=== PATIENT | female | born 1975 | race Caucasian/White ===

== ENCOUNTER 2016-05-12 17:45 | Emergency (ER) | payer SELFPAY ==
[~2016-05-12] VITALS: Ht 157.5 cm; Wt 50.0 kg
[2016-05-12 17:47] VITALS: BP 137/64; PULSE 73; RESP 14; TEMP 98.4; O2SAT 99
[2016-05-12 20:13] LABS: BACTERIA, URINE RARE /hpf; BLOOD, URINE NEG (NEG); GLUCOSE,URINE NEG (NEG); KETONE, URINE NEG (NEG); MUCUS URINE FEW /lpf (OCC); NITRITE,URINE NEG (NEG); SQUAMOUS EPITHELIAL CELL URINE 26 /hpf (0-5); URINE COLOR YELLOW (YELLW/STRAW)
[2016-05-12 20:14] LABS: COMMENT (UR) CULT NOT INDICATED; CULTURE IF INDICATED CULT NOT INDICATED
[2016-05-12 23:00] VITALS: BP 112/69; PULSE 71; RESP 16; O2SAT 99
[2016-05-12] MEDS ORDERED: KETOROLAC TROMETHAMINE 30 MG/ML (IVP) VIAL IV PUSH ONE (23:30)
[2016-05-12 23:56] LABS: AUTOMATED NEUTROPHIL # 5.3 TH/MM3 (1.8-7.7); BASOPHIL # 0.2 TH/MM3 (0-0.2); BASOPHIL % 1.6 % (0.0-2.0); EOSINOPHIL # 0.2 TH/MM3 (0-0.4); HEMATOCRIT 40.9 % (35.0-46.0); HEMO FLAGS DIFF FINAL; LYMPHOCYTE # 3.5 TH/MM3 (1.0-4.8); MEAN CELL VOLUME 92.2 FL (80.0-100.0); MEAN CORPUSCULAR HEMOGLOBIN 30.9 PG (27.0-34.0); MEAN CORPUSCULAR HGB CONC 33.5 % (32.0-36.0); MONO % 5.6 % (0.0-8.0); NEUT % 54.8 % (16.0-70.0); PLATELET COUNT 244 TH/MM3 (150-450); RED BLOOD COUNT 4.43 MIL/MM3 (4.00-5.30); RED CELL DISTRIBUTION WIDTH 13.4 % (11.6-17.2); WHITE BLOOD COUNT 9.6 TH/MM3 (4.0-11.0)
[2016-05-13] VITALS: BP 112/56; PULSE 71; RESP 14; O2SAT 99
[2016-05-13 00:14] LABS: ANION GAP 7 MEQ/L (5-15); AST (GOT) 34 U/L (15-37); BICARBONATE 26.3 MEQ/L (21.0-32.0); BLOOD UREA NITROGEN 13 MG/DL (7-18); CHLORIDE 104 MEQ/L (98-107); GLOMERULAR FILTRATION RATE 91 ML/MIN (>89); POTASSIUM 3.6 MEQ/L (3.5-5.1); SODIUM (NA) 137 MEQ/L (136-145)
[2016-05-13 00:18] LABS: ALKALINE PHOSPHATASE 69 U/L (45-117); ALT (GPT) 55 U/L (10-53); TOTAL BILIRUBIN ADULT 0.2 MG/DL (0.2-1.0)
[2016-05-13] MEDS ORDERED: MORPHINE SULFATE 4 MG/ML INJ IV PUSH ONE (00:30)
--- NOTE | 2016-05-13 00:32 | PD ---
HPI Chief Complaint: Abdominal Pain Time Seen by Provider: 23:25 Travel History International Travel<30 days: No Contact w/Intl Traveler<30days: No Traveled to known affect area: No History of Present Illness HPI 40yo F with PMH of endometriosis, hep C, cocaine abuse, bipolar and schizophrenia here because her abdominal pain has persisted. Pt was admitted -05/10/16 for sepsis, UTI, trichonmonas, enteritis and sign out AMA. Pt was seen by GI and recommended endoscopic/colonoscopic after CTa/p showed generalized mild enteritis. Pt was given cipro/flagyl and morphine while admitted. +Nausea. States she has had had BM since she was here. States she will stay this time to get the study done. States she does not have insurance and cant have it done as outpatient. Denies any fever, cough, chest pain, sob, vomiting, weakness, numbness. PFSH Past Medical History Arthritis: Yes Autoimmune Disease: No Anxiety: Yes Depression: Yes Cancer: Yes (Dysplasia) Cardiovascular Problems: No Chemotherapy: No COPD: No (says told her she has it ) Cerebrovascular Accident: No Diabetes: No Diminished Hearing: No Endocrine: No Genitourinary: No Hepatitis: Yes (Hep C ) Immune Disorder: No Musculoskeletal: Yes Neurologic: No Psychiatric: Yes (BIPOLAR, SCHIZO) Reproductive: Yes (endometriosis) Respiratory: No Immunizations Current: Yes Migraines: No Radiation Therapy: No Seizures: No Influenza Vaccination: No PNEUMOCCOCAL Vaccine (Year): 2 ?: Not : 4 Para: 1 Miscarriage: 2 : 1 Ectopic : No Ovarian Cysts: No Tubal Ligation: Yes (LEFT ONLY) Past Surgical History Appendectomy: Yes Gynecologic Surgery: Yes (laproscopy) Hysterectomy: No Other Surgery: Yes (Left fallopian tube removed age 21) Social History Alcohol Use: No Tobacco Use: Yes (1 PPD) Substance Use: Yes (CRACK, LAST USE 05/11/16) Allergies-Medications (Allergen,Severity, Reaction): Coded Allergies: Penicillin (Verified Allergy, Severe, GI UPSET, 05/12/16) Sulfa (Verified Allergy, Intermediate, GI , 05/12/16) Betadine (Verified Allergy, Mild, RASH, 05/12/16) Barium Sulfate (Verified Allergy, Unknown, PT GETS A RASH WITH BETADINE, ) Reported Meds & Prescriptions Reported Meds & Active Scripts Active Cipro (Ciprofloxacin HCl) 500 Mg Tab 500 Mg PO BID 7 Days Acetaminophen Extra Strength (Acetaminophen) 500 Mg Cap 500 Mg PO Q6H PRN Review of Systems Except as stated in HPI: all other systems reviewed are Neg Physical Exam Narrative GENERAL: 40yo F in mild distress. SKIN: Warm and dry. HEAD: Atraumatic. Normocephalic. CARDIOVASCULAR: Regular rate and rhythm. No murmur appreciated. RESPIRATORY: No accessory muscle use. Clear to auscultation. Breath sounds equal bilaterally. GASTROINTESTINAL: Abdomen soft, +TTP diffusely. No rebound tenderness or guarding. MUSCULOSKELETAL: No obvious deformities. No clubbing. No cyanosis. No edema. NEUROLOGICAL: Awake and alert. No obvious cranial nerve deficits. Motor grossly within normal limits. Normal speech. PSYCHIATRIC: Appropriate mood and affect; insight and judgment normal. Data Data Last Documented VS Vital Signs Date Time Temp Pulse Resp B/P Pulse Ox O2 Delivery O2 Flow Rate FiO2 05/13/16 03:48 80 16 100/52 100 05/13/16 02:00 Room Air 05/12/16 17:47 98.4 Orders Urinalysis - C+S If Indicated (05/12/16 19:51) Lactic Acid (05/12/16 22:42) Complete Blood Count With Diff (05/12/16 23:30) Comprehensive Metabolic Panel (05/12/16 23:30) Lipase (05/12/16 23:30) Ketorolac Inj (Toradol Inj) (05/12/16 23:30) Morphine Inj (Morphine Inj) (05/13/16 00:30) Bhcg Screen Qualitative (05/13/16 00:32) Mandatory Outpatient Referral (05/13/16 01:43) Abdomen, Flat & Upright (05/13/16 ) Labs Laboratory Tests Test 05/12/16 05/12/16 05/12/16 19:50 22:45 23:45 Urine Color YELLOW Urine Turbidity HAZY Urine pH 6.0 Urine Specific [place] 1.019 Urine Protein NEG mg/dL Urine Glucose (UA) NEG mg/dL Urine Ketones NEG mg/dL Urine Occult Blood NEG Urine Nitrite NEG Urine Bilirubin NEG Urine Urobilinogen LESS THAN 2.0 MG/DL Urine Leukocyte Esterase TRACE Urine RBC 2 /hpf Urine WBC 2 /hpf Urine Squamous Epithelial 26 /hpf Cells Urine Bacteria RARE /hpf Urine Mucus FEW /lpf Microscopic Urinalysis Comment CULT NOT INDICATED Lactic Acid Level 0.4 mmol/L White Blood Count 9.6 TH/MM3 Red Blood Count 4.43 MIL/MM3 Hemoglobin 13.7 GM/DL Hematocrit 40.9 % Mean Corpuscular Volume 92.2 FL Mean Corpuscular Hemoglobin 30.9 PG Mean Corpuscular Hemoglobin 33.5 % Concent Red Cell Distribution Width 13.4 % Platelet Count 244 TH/MM3 Mean Platelet Volume 10.8 FL Neutrophils (%) (Auto) 54.8 % Lymphocytes (%) (Auto) 36.0 % Monocytes (%) (Auto) 5.6 % Eosinophils (%) (Auto) 2.0 % Basophils (%) (Auto) 1.6 % Neutrophils # (Auto) 5.3 TH/MM3 Lymphocytes # (Auto) 3.5 TH/MM3 Monocytes # (Auto) 0.5 TH/MM3 Eosinophils # (Auto) 0.2 TH/MM3 Basophils # (Auto) 0.2 TH/MM3 CBC Comment DIFF FINAL Differential Comment Sodium Level 137 MEQ/L Potassium Level 3.6 MEQ/L Chloride Level 104 MEQ/L Carbon Dioxide Level 26.3 MEQ/L Anion Gap 7 MEQ/L Blood Urea Nitrogen 13 MG/DL Creatinine 0.72 MG/DL Estimat Glomerular Filtration 91 ML/MIN Rate Random Glucose 124 MG/DL Calcium Level 8.3 MG/DL Total Bilirubin 0.2 MG/DL Aspartate Amino Transf 34 U/L (AST/SGOT) Alanine Aminotransferase 55 U/L (ALT/SGPT) Alkaline Phosphatase 69 U/L Total Protein 7.2 GM/DL Albumin 3.0 GM/DL Lipase 94 U/L Beta HCG, Qualitative LESS THAN 1 MIU/ML [facility] Medical Decision Making Medical Screen Exam Complete: Yes Emergency Medical Condition: Yes Differential Diagnosis Enteritis vs. ulcerative colitis vs. obstruction Narrative Course 40yo F with persistent abdominal pain since last week. Pt signed out AMA before endoscopy and colonoscopy could be done. Labs reviewed, no leukocytosis. Lactic acid 0.4. ALT 55. UA showed trace leukocyte. Culture not indicated. Discussed with Dr. Wick who does not think the patient should be admitted and recommended a outpatient GI referral. Pt still with pain after toradol so morphine was given. bHCG negative. Signed out to Dr. Haney to follow up xray abdomen. Do not think pt has obstruction but states she has not had a bowel movement in few days, likely has constipation. Pt will be discharged with mandatory referral to GI if xray negative. Pt is well appearing with normal VS and labs. Informed pt of plan. Diagnosis Primary Impression: Chronic constipation Patient Instructions: General Instructions Departure Forms: Tests/Procedures Additional Instructions: Please follow up with GI as outpatient for further work up. Wait for correctional casework specialist to call you for appointment date and time. Return to the ED if symptoms worsen. Med/Other Pt SpecificInfo: Prescription(s) given Scripts Ciprofloxacin (Cipro)500 Mg [id number] Mg PO BID 7 Days Ref 0 Prov:Anali Haney MD 05/13/16 Acetaminophen (Acetaminophen Extra Strength)500 Mg Cop855 Mg PO Q6H PRN #20 CAP Ref 0 Prov:Cyndi Curtis DO 05/13/16 Cyndi Curtis DO May 13, 2016 00:32
[2016-05-13 01:00] VITALS: BP 104/55; PULSE 71; RESP 16; O2SAT 99
[2016-05-13] MEDS ORDERED: EXTR500C PO (01:30)
[2016-05-13 02:00] VITALS: BP 96/55; PULSE 61; RESP 16; O2SAT 99
--- NOTE | 2016-05-13 02:53 | RADRPT ---
EXAM DATE/TIME: 05/13/2016 02:21 [place] COMPARISON: CT ABDOMEN & PELVIS W CONTRAST, May 08, 2016, 19:48. INDICATIONS : Abdominal pain and constipation for one week. MEDICAL HISTORY : None. SURGICAL HISTORY : None. ENCOUNTER: Initial ACUITY: 1 week PAIN SCORE: 8/10 LOCATION: Bilateral abdomen. FINDINGS: Supine and upright views of the abdomen were performed. The abdominal bowel gas pattern is normal. No air fluid levels are seen. No abnormal masses, or calcifications is seen. Hepatomegaly noted. Th e visualized lower lungs are clear. No evidence of free intraperitoneal gas. The osseous structures are unremarkable. CONCLUSION: 1. Normal bowel gas pattern. 2. Hepatomegaly Miquel Carpenter Jr., MD on May 13, 2016 at 2:50 Board Certified Radiologist. This report was verified electronically.
[2016-05-13] MEDS ORDERED: CIPR-9 PO (02:57)
--- NOTE | 2016-05-13 02:57 | PD ---
Physical Exam Date Seen by Provider: May 13, 2016 Time Seen by Provider: 02:54 Narrative Accepted in transfer of care from Dr. Curtis Data Data Last Documented VS Vital Signs Date Time Temp Pulse Resp B/P Pulse Ox O2 Delivery O2 Flow Rate FiO2 05/13/16 03:48 80 16 100/52 100 05/13/16 02:00 Room Air 05/12/16 17:47 98.4 Orders Urinalysis - C+S If Indicated (05/12/16 19:51) Lactic Acid (05/12/16 22:42) Complete Blood Count With Diff (05/12/16 23:30) Comprehensive Metabolic Panel (05/12/16 23:30) Lipase (05/12/16 23:30) Ketorolac Inj (Toradol Inj) (05/12/16 23:30) Morphine Inj (Morphine Inj) (05/13/16 00:30) Bhcg Screen Qualitative (05/13/16 00:32) Mandatory Outpatient Referral (05/13/16 01:43) Abdomen, Flat & Upright (05/13/16 ) Labs Laboratory Tests Test 05/12/16 05/12/16 05/12/16 19:50 22:45 23:45 Urine Color YELLOW Urine Turbidity HAZY Urine pH 6.0 Urine Specific [place] 1.019 Urine Protein NEG mg/dL Urine Glucose (UA) NEG mg/dL Urine Ketones NEG mg/dL Urine Occult Blood NEG Urine Nitrite NEG Urine Bilirubin NEG Urine Urobilinogen LESS THAN 2.0 MG/DL Urine Leukocyte Esterase TRACE Urine RBC 2 /hpf Urine WBC 2 /hpf Urine Squamous Epithelial 26 /hpf Cells Urine Bacteria RARE /hpf Urine Mucus FEW /lpf Microscopic Urinalysis Comment CULT NOT INDICATED Lactic Acid Level 0.4 mmol/L White Blood Count 9.6 TH/MM3 Red Blood Count 4.43 MIL/MM3 Hemoglobin 13.7 GM/DL Hematocrit 40.9 % Mean Corpuscular Volume 92.2 FL Mean Corpuscular Hemoglobin 30.9 PG Mean Corpuscular Hemoglobin 33.5 % Concent Red Cell Distribution Width 13.4 % Platelet Count 244 TH/MM3 Mean Platelet Volume 10.8 FL Neutrophils (%) (Auto) 54.8 % Lymphocytes (%) (Auto) 36.0 % Monocytes (%) (Auto) 5.6 % Eosinophils (%) (Auto) 2.0 % Basophils (%) (Auto) 1.6 % Neutrophils # (Auto) 5.3 TH/MM3 Lymphocytes # (Auto) 3.5 TH/MM3 Monocytes # (Auto) 0.5 TH/MM3 Eosinophils # (Auto) 0.2 TH/MM3 Basophils # (Auto) 0.2 TH/MM3 CBC Comment DIFF FINAL Differential Comment Sodium Level 137 MEQ/L Potassium Level 3.6 MEQ/L Chloride Level 104 MEQ/L Carbon Dioxide Level 26.3 MEQ/L Anion Gap 7 MEQ/L Blood Urea Nitrogen 13 MG/DL Creatinine 0.72 MG/DL Estimat Glomerular Filtration 91 ML/MIN Rate Random Glucose 124 MG/DL Calcium Level 8.3 MG/DL Total Bilirubin 0.2 MG/DL Aspartate Amino Transf 34 U/L (AST/SGOT) Alanine Aminotransferase 55 U/L (ALT/SGPT) Alkaline Phosphatase 69 U/L Total Protein 7.2 GM/DL Albumin 3.0 GM/DL Lipase 94 U/L Beta HCG, Qualitative LESS THAN 1 MIU/ML MDM Medical Record Reviewed: Yes Supervised Visit with GLORY: No Differential Diagnosis Please refer to Dr. Curtis's dictation Narrative Course Accepted in transfer of care from Dr. Curtis for follow-up of pending abdominal x- ray and quantitative hCG Quantitative hCG is less than one, negative Abdominal flat and upright imaging shows nonspecific bowel gas pattern large stool no obstructive pattern no free air Patient was noted by urinalysis to have rare bacteria leukocyte Estrace patient was recently hospitalized 05/08/16 for sepsis and was identified to have Escherichia coli UTI that is sensitive to Cipro patient was not discharged that she left AMA with oral antibiotic therefore be given 7 day course to complete coverage of Escherichia coli UTI Diagnosis Primary Impression: Chronic constipation Additional Impression: UTI (urinary tract infection) Referrals: [employer] Supervisor call for appointment Patient Instructions: General Instructions Departure Forms: Tests/Procedures Additional Instruction: Please follow up with GI as outpatient for further work up. Wait for case finisher to call you for appointment date and time. Return to the ED if symptoms worsen. Med/Other Pt SpecificInfo: Prescription(s) given Scripts Ciprofloxacin (Cipro)500 Mg Wzc403 Mg PO BID 7 Days Ref 0 Prov:Anali Haney MD 05/13/16 Acetaminophen (Acetaminophen Extra Strength)500 Mg [id number] Mg PO Q6H PRN #20 CAP Ref 0 Prov:Cyndi Curtis DO 05/13/16 Disposition: 01 DISCHARGE HOME Condition: Stable Anali Haney MD May 13, 2016 02:57
[2016-05-13 03:48] VITALS: BP 100/52
== END 2016-05-13 03:52 | disposition home or self-care (01) ==
LOC: NEPA 17:45
DX: K59.00 Constipation, unspecified (principal); F17.210 Nicotine dependence, cigarettes, uncomplicated; F15.90 Other stimulant use, unspecified, uncomplicated; N39.0 Urinary tract infection, site not specified
CPT/HCPCS: 74020; 80053; 81001; 83605; 83690; 84703; 85025; 96374; 96375; 99284; J1885; J2270

== ENCOUNTER 2016-05-30 06:32 | Inpatient (IN) | payer SELFPAY ==
[2016-05-30] VITALS (9 sets, daily range): BP systolic 105–148; BP diastolic 48–65; PULSE 54–96; RESP 16–20; TEMP 96.1–98.2; O2SAT 95–100
[~2016-05-30] VITALS: Ht 158.8 cm; Wt 65.0 kg
[~2016-05-30 06:32] MED LIST: CIPR-9 PO; EXTR500C PO
[2016-05-30] MEDS ORDERED: LIDOCAINE 1%/EPINEPHrine 1:100,000 SOLN 20 ML VIAL INFIL ONE (07:30)
[2016-05-30] MEDS ORDERED: MORPHINE SULFATE 4 MG/ML INJ IV PUSH ONE ×2 (07:30→10:00)
--- NOTE | 2016-05-30 07:30 | PD ---
HPI Chief Complaint: Skin Problem Time Seen by Provider: 07:05 Travel History International Travel<30 days: No Contact w/Intl Traveler<30days: No Traveled to known affect area: No History of Present Illness HPI 40-year-old female with history of IV drug abuse here with complaint of right arm swelling. Patient states she recently began using IV drugs, methamphetamine , injecting in both upper extremities. For the last 4 days she has noticed increasing pain in the right upper extremity surrounding an injection site and now pain when she ranges her fingers. The pain ranges from the hand all the way up to the elbow. She denies any fevers or chills. She does have a history of hepatitis C and endocarditis. PFSH Past Medical History Arthritis: Yes Autoimmune Disease: No Anxiety: Yes Depression: Yes Cancer: Yes (Dysplasia) Cardiovascular Problems: No Chemotherapy: No Cerebrovascular Accident: No Diabetes: No Diminished Hearing: No Endocrine: No Genitourinary: No Hepatitis: Yes (Hep C ) Immune Disorder: No Musculoskeletal: Yes Neurologic: No Psychiatric: Yes (BIPOLAR, SCHIZO) Reproductive: Yes (endometriosis) Respiratory: No Immunizations Current: Yes Migraines: No Radiation Therapy: No Seizures: No PNEUMOCCOCAL Vaccine (Year): 2 ?: Not LMP: 05/21/2016 : 4 Para: 1 Miscarriage: 2 : 1 Ectopic : No Ovarian Cysts: No Tubal Ligation: Yes (LEFT ONLY) Past Surgical History Appendectomy: Yes Gynecologic Surgery: Yes (laproscopy) Hysterectomy: No Other Surgery: Yes (Left fallopian tube removed age 21) Social History Alcohol Use: No Tobacco Use: Yes (1 PPD) Substance Use: Yes (inject cocaine) Allergies-Medications (Allergen,Severity, Reaction): Coded Allergies: Penicillin (Verified Allergy, Severe, GI UPSET, 05/12/16) Sulfa (Verified Allergy, Intermediate, GI , 05/12/16) Betadine (Verified Allergy, Mild, RASH, 05/12/16) Barium Sulfate (Verified Allergy, Unknown, PT GETS A RASH WITH BETADINE, ) Reported Meds & Prescriptions Reported Meds & Active Scripts Active No Active Prescriptions or Reported Medications Review of Systems Except as stated in HPI: all other systems reviewed are Neg Physical Exam Narrative GENERAL: Cachectic female in no acute distress SKIN: Warm and dry. Tract cano to the bilateral antecubital, dorsal hands. HEAD: Normocephalic. EYES: No scleral icterus. No injection or drainage. ENT: Mucous membranes pink and moist. NECK: Supple CARDIOVASCULAR: Regular rate and rhythm. No murmur appreciated. RESPIRATORY: No accessory muscle use. Clear to auscultation. Breath sounds equal bilaterally. GASTROINTESTINAL: Abdomen soft, non-tender, nondistended. MUSCULOSKELETAL: Right upper extremity with erythema on the volar aspect of the forearm surrounding an injection site. There is induration, slight fluctuance. Patient holds her third, fourth, fifth fingers of the right hand flexed and has moderate to severe pain with passive extension of these fingers. The index finger and thumb are spared. Good distal sensation, pulses. 4+ out of 5 cryptologic technician operator/analyst strength in the right upper extremity. NEUROLOGICAL: Awake and alert. Normal speech. PSYCHIATRIC: insight and judgment poor Data Data Last Documented VS Vital Signs Date Time Temp Pulse Resp B/P Pulse Ox O2 Delivery O2 Flow Rate FiO2 05/30/16 07:30 96 Room Air 05/30/16 07:10 71 05/30/16 06:34 98.2 20 143/63 Orders Electrocardiogram (05/30/16 07:18) Complete Blood Count With Diff (05/30/16 07:18) Lactic Acid Sepsis Protocol (05/30/16 07:18) Blood Culture (05/30/16 07:18) Ecg Monitoring (05/30/16 07:18) Iv Access Insert/Monitor (05/30/16 07:18) Oximetry (05/30/16 07:18) Basic Metabolic Panel (Bmp) (05/30/16 07:18) Wound Culture And Gram Stain (05/30/16 07:18) Lidocai-Epi 1%-1:100,000 Inj (Xylocaine- (05/30/16 07:30) Morphine Inj (Morphine Inj) (05/30/16 07:30) Clindamycin Inj (Cleocin Inj) (05/30/16 08:15) Ct Forearm W Iv Contrast (05/30/16 ) Consult Hand Surgery (05/30/16 ) Admit Order (Ed Use Only) (05/30/16 08:14) Labs Laboratory Tests Test 05/30/16 07:40 White Blood Count 10.5 TH/MM3 Red Blood Count 4.42 MIL/MM3 Hemoglobin 13.8 GM/DL Hematocrit 40.9 % Mean Corpuscular Volume 92.5 FL Mean Corpuscular Hemoglobin 31.2 PG Mean Corpuscular Hemoglobin 33.7 % Concent Red Cell Distribution Width 13.7 % Platelet Count 230 TH/MM3 Mean Platelet Volume 10.4 FL Neutrophils (%) (Auto) 68.8 % Lymphocytes (%) (Auto) 21.2 % Monocytes (%) (Auto) 8.6 % Eosinophils (%) (Auto) 0.4 % Basophils (%) (Auto) 1.0 % Neutrophils # (Auto) 7.3 TH/MM3 Lymphocytes # (Auto) 2.2 TH/MM3 Monocytes # (Auto) 0.9 TH/MM3 Eosinophils # (Auto) 0.0 TH/MM3 Basophils # (Auto) 0.1 TH/MM3 CBC Comment DIFF FINAL Differential Comment Sodium Level 140 MEQ/L Potassium Level 3.4 MEQ/L Chloride Level 107 MEQ/L Carbon Dioxide Level 25.3 MEQ/L Anion Gap 8 MEQ/L Blood Urea Nitrogen 10 MG/DL Creatinine 0.66 MG/DL Estimat Glomerular Filtration 100 ML/MIN Rate Random Glucose 89 MG/DL Lactic Acid Level 0.6 mmol/L Calcium Level 8.3 MG/DL MDM Medical Decision Making Medical Screen Exam Complete: Yes Emergency Medical Condition: Yes Medical Record Reviewed: Yes Differential Diagnosis 40-year-old female with hepatitis C, IVDU here with right upper extremity swelling, pain after injecting methamphetamine. Exam is consistent with cellulitis with abscess. Concern for flexor tenosynovitis given her pain with passive extension of the third through fifth fingers. At this time she does not have any evidence of systemic symptoms, bacteremia, endocarditis. Narrative Course Patient placed on monitor, IV established and blood obtained. Twelve-lead EKG showed sinus rhythm. Patient has T-wave inversions in V4, 5, 6. Patient given 2 mg morphine IV. CBC, BMP, lactate, wound culture, blood cultures obtained and unremarkable. I&D performed, please see procedure note. I spoke with Dr. Gregory of hand surgery who agreed with admitting patient with IV antibiotics , and he will see patient in further evaluation for possible operative exploration for tenosynovitis. CT of the forearm was ordered to evaluate further for deeper abscess. Procedures Procedure Narrative INCISION AND DRAINAGE OF ABSCESS: The area was prepped and was sterilely draped. A subcutaneous wheal of 1% Xylocaine with epinephrine with a total number 10 mL was used to anesthetize the area. The area was properly anesthetized. A number 11 blade scalpel was used to make a 1.5-cm incision across the area of the abscess. Cultures were obtained. The abscess was drained an irrigated with normal saline. Quarter inch iodoform packing was placed in the wound. Sterile dressing applied. Patient advised to have packing removed in two days. Diagnosis Primary Impression: Tenosynovitis of right upper arm Admitting Information Admitting Physician Requests: Admit Scripts No Active Prescriptions or Reported Meds Itzel Diaz MD May 30, 2016 07:30
[2016-05-30 07:59] LABS: AUTOMATED NEUTROPHIL # 7.3 TH/MM3 (1.8-7.7); BASOPHIL # 0.1 TH/MM3 (0-0.2); EOSINOPHIL % 0.4 % (0.0-4.0); HEMATOCRIT 40.9 % (35.0-46.0); HEMO FLAGS DIFF FINAL; LYMPH % 21.2 % (9.0-44.0); LYMPHOCYTE # 2.2 TH/MM3 (1.0-4.8); MEAN CELL VOLUME 92.5 FL (80.0-100.0); MEAN CORPUSCULAR HEMOGLOBIN 31.2 PG (27.0-34.0); MEAN CORPUSCULAR HGB CONC 33.7 % (32.0-36.0); MONO % 8.6 % (0.0-8.0); NEUT % 68.8 % (16.0-70.0); PLATELET COUNT 230 TH/MM3 (150-450); RED BLOOD COUNT 4.42 MIL/MM3 (4.00-5.30); RED CELL DISTRIBUTION WIDTH 13.7 % (11.6-17.2); WHITE BLOOD COUNT 10.5 TH/MM3 (4.0-11.0)
[2016-05-30 08:15] LABS: BICARBONATE 25.3 MEQ/L (21.0-32.0); POTASSIUM 3.4 MEQ/L (3.5-5.1)
[2016-05-30] MEDS ORDERED: CLINDAMYCIN INJ 600 MG in SODIUM CHLORIDE 0.9% INJ 100 ML IV ONE (08:15)
--- NOTE | 2016-05-30 08:41 | HHI.HP ---
[facility] Service Family Medicine Primary Care Physician No Primary Care Physician Admission Diagnosis tenosynovitis R forearm Diagnoses: International Travel<30 Days: No Contact w/Intl Traveler<30days: No Known Affected Area: No History of Present Illness 40 year old female with h/o IVDA, hepatitis C, bipolar disorder, schizophrenia presents to ED with progressively worsening pain and swelling of her right distal arm. Patient states she injected the site 4 days ago with cocaine. A few hours after injecting she then noticed severe pain that has steadily been getting worse. She states the swelling started early this morning sometime between 04:00 to 06:00. She denies any fevers, chills, or night sweats. She started having decreased ROM of her right fingers yesterday afternoon. She now states moving her fingers causes significant pain. Denies any N/V or diarrhea. Denies chest pain, shortness of breath, headaches, visual changes, pain elsewhere in her body. (Jose Ramon Arellano MD R1) Review of Systems Constitutional: DENIES: Fever, Chills, Night Sweats Eyes: DENIES: Blurred vision Respiratory: DENIES: Cough, Shortness of breath Cardiovascular: DENIES: Chest pain, Palpitations, Lower Extremity Edema Gastrointestinal: DENIES: Diarrhea, Nausea, Vomiting Musculoskeletal: COMPLAINS OF: Stiffness (Jose Ramon Arellano MD R1) Past Family Social History Past Medical History IVDA Endometriosis Cervical dysplasia Crack cocaine abuse Hepatitis C Bipolar disorder Schizophrenia Chronic constipation Past Surgical History Appendectomy Laparoscopic left fallopian tube removal age 21 Reported Medications Reported Meds & Active Scripts Active No Active Prescriptions or Reported Medications (Jose Ramon Arellano MD R1) Allergies: Coded Allergies: Penicillin (Verified Allergy, Severe, GI UPSET, 05/30/16) Sulfa (Verified Allergy, Intermediate, GI , 05/30/16) Betadine (Verified Allergy, Mild, RASH, 05/30/16) Barium Sulfate (Verified Allergy, Unknown, PT GETS A RASH WITH BETADINE, ) Family History Mother: throat cancer, HTN, at age 43 Father: cirrhosis, HTN, at age 59 Uncle at age 47 from colon cancer Social History Tobacco: Previously 2 PPD since age 10; states she is now smoking 1 PPD Illicit Drugs: she admits to smoking crack cocaine and injecting cocaine; denies use of marijuana, methamphetamine, or any other illicit drugs Alcohol: denies Lives with her boyfriend locally (TaimarlenyjanaeJose Ramon BERNARDO R1) Physical Exam Vital Signs Vital Signs Date Time Temp Pulse Resp B/P Pulse Ox O2 Delivery O2 Flow Rate FiO2 05/30/16 07:30 96 Room Air 05/30/16 07:10 71 05/30/16 06:34 98.2 85 20 143/63 95 Room Air Physical Exam GENERAL: Sitting up in bed, visible distress due to pain NEURO: AOx3. Normal speech. elevator operator service grossly intact. Moves left upper extremity and bilateral lower extremities with full ROM. Patient has her 3rd through 5th digits of right hand flexed and has severe pain with passive extension. ROM of right fingers are very restricted, she is only able to wiggle her right 3rd-5th digits. 2nd digit also has decreased ROM but moreso compared to other digits. Full ROM of her thumb. Sensation is intact in all fingers. Capillary refill is brisk in all fingers. Radial pulses are 2+ bilaterally. Automotive Services Manager strength 5/5 of left hand, 4/5 of right hand. SKIN: Warm and dry. Multiple track amy injection sites noted on both arms. Right arm is wrapped in gauze s/p I&D of abscess by ED physician. No erythema extending from beyond what is wrapped in gauze. No visible bleeding or drainage. HEAD: Normocephalic. Atraumatic. EYES: PERRL. EOMI. No scleral icterus. No injection or drainage. ENT: No nasal drainage. Moist mucous membranes. No oral ulcers or lesions. NECK: Supple, trachea midline. No JVD or lymphadenopathy. CARDIOVASCULAR: Regular rate and rhythm without murmurs, rubs, or gallops. Peripheral pulses 2+. Capillary refill < 2 seconds. RESPIRATORY: Breath sounds clear to auscultation and equal bilaterally, without wheezes, rales, or rhonchi. No accessory muscle use. GASTROINTESTINAL: Abdomen soft, nontender, nondistended, normal BS. No rebound tenderness. No guarding. MUSCULOSKELETAL: No edema, cyanosis, or clubbing. BACK: Nontender without obvious deformity. Laboratory Laboratory Tests Test 05/30/16 07:40 White Blood Count 10.5 Red Blood Count 4.42 Hemoglobin 13.8 Hematocrit 40.9 Mean Corpuscular Volume 92.5 Mean Corpuscular Hemoglobin 31.2 Mean Corpuscular Hemoglobin 33.7 Concent Red Cell Distribution Width 13.7 Platelet Count 230 Mean Platelet Volume 10.4 Neutrophils (%) (Auto) 68.8 Lymphocytes (%) (Auto) 21.2 Monocytes (%) (Auto) 8.6 Eosinophils (%) (Auto) 0.4 Basophils (%) (Auto) 1.0 Neutrophils # (Auto) 7.3 Lymphocytes # (Auto) 2.2 Monocytes # (Auto) 0.9 Eosinophils # (Auto) 0.0 Basophils # (Auto) 0.1 CBC Comment DIFF FINAL Differential Comment Sodium Level 140 Potassium Level 3.4 Chloride Level 107 Carbon Dioxide Level 25.3 Anion Gap 8 Blood Urea Nitrogen 10 Creatinine 0.66 Estimat Glomerular Filtration 100 Rate Random Glucose 89 Lactic Acid Level 0.6 Calcium Level 8.3 Date/Time Procedure Status Source Growth 05/30/16 08:20 Gram Stain Received Wound Arm Pending 05/30/16 08:20 Wound Culture Received Wound Arm Pending 05/30/16 07:40 Aerobic Blood Culture Received Blood Peripheral Pending 05/30/16 07:40 Anaerobic Blood Culture Received Blood Peripheral Pending (Jose Ramon Arellano MD R1) Result Diagram: 05/30/16 0740 05/30/16 0740 Septic Shock Reassessment Heart: Regular rate and rhythm Lungs: Clear Skin: Cold, Dry Peripheral Pulses: Bounding Right Radial Bounding Left Radial Bounding Right Dorsalis Pedis Bounding Left Dorsalis Pedis Bounding Right Posterior Tibial Bounding Left Posterior Tibial Capillary Refill: <2 seconds (Jose Ramon Arellano MD R1) Assessment and Plan Assessment and Plan 40 year old female with h/o IVDA, hepatitis C, bipolar disorder, schizophrenia presents to ED with progressively worsening pain and swelling of her right distal arm. She will be admitted and managed for the following: Code Status Full code Discussed Condition With dw Dr. Colón wdw Dr. Hernandez (Jose Ramon Arellano MD R1) Problem List: (1) Tenosynovitis of right upper arm Status: Acute Plan: There is a significant concern for flexor tenosynovitis given the patient having decreased ROM and severe pain with extension of her right 3rd through 5th digits Dr. Gregory, hand surgery, is aware of the patient and will determine need for surgical intervention CT with contrast of right forearm showing a subcutaneous abscess not invading muscle or dermis, no significant fluid; no evidence for osteomyelitis or bony involvement Keep NPO Pain control with Morphine 2 mg IV q4h (2) IV drug abuse Status: Chronic Plan: Patient reported injecting herself with cocaine as early as 4 days ago. She repeatedly denies any other use of IV drugs Currently there are no si/sxs concerning for bacteremia Afebrile, vitals are within normal limits Regular rate and rhythm without murmurs on exam No leukocytosis, lactic acid 0.6 Blood and wound culture obtained Received clindamycin 600 mg IV in the ED - Will continue clindamycin 600 mg IV q8h Start Vancomycin 1 gm IV q12h (3) Nutrition, metabolism, and development symptoms Status: Acute Plan: Fluids: NS at maintenance rate Electrolytes: K+ 3.4, will continue to monitor BMP Nutrition: NPO for now ahead of possible surgical intervention DVT PPX: SCDs (Jose Ramon Arellano MD R1) Physician Certification 2 Midnight Certification Type: Admission for Inpatient Services Order for Inpatient Services The services are ordered in accordance with Medicare regulations or non- Medicare payer requirements, as applicable. In the case of services not specified as inpatient-only, they are appropriately provided as inpatient services in accordance with the 2-midnight benchmark. Estimated LOS (days): 2 days is the estimated time the patient will need to remain in the hospital, assuming treatment plan goals are met and no additional complications. Post-Hospital Plan: Home (Jose Ramon Arellano MD R1) 2 Midnight Certification Type: Admission for Inpatient Services Post-Hospital Plan: Home (Chilango Hernandez MD) Jose Ramon Arellano MD R1 May 30, 2016 08:41 Chilango Hernandez MD May 31, 2016 12:30
[2016-05-30] MEDS ORDERED: IOHEXOL 350 MG/ML 10 ML VIAL (for RAD DIAG) IV ONE (09:25)
--- NOTE | 2016-05-30 09:36 | RADRPT ---
EXAM DATE/TIME: 05/30/2016 08:51 [facility] COMPARISON: No previous studies available for comparison. INDICATIONS: Right arm/wrist swelling status post self-inflicted injection. IV CONTRAST: 70 cc Omnipaque 350 (iohexol) IV RADIATION DOSE: 8.73 CTDIvol (mGy) MEDICAL HISTORY: Hepatitis C. SURGICAL HISTORY: None. ENCOUNTER: Initial ACUITY: 1 day PAIN SCALE: 6/10 LOCATION: Right arm TECHNIQUE: Volumetric scanning of the forearm was performed. Using automated exposure control and adjustment of the mA and/or kV according to patient size, radiation dose was kept as low as reasonably achievable to obtain optimal diagnostic quality images. FINDINGS: There is a subcutaneous abscess in the forearm that really is confined to the subcutaneous tissues an d does not invade muscle or dermis. There is no significant fluid in or around this. There is generalized subc utaneous edema in the arm. There is no evidence for osteomyelitis or bony involvement. CONCLUSION: Abscess appears to be confined to the subcutaneous tissues without involvement of the deeper structur es. Albino Arthur MD FACR on May 30, 2016 at 9:24 Board Certified Radiologist. This report was verified electronically.
[2016-05-30] MEDS ORDERED: NALOXONE HCL 0.4 MG/ML AMP IV PRN (10:30)
[2016-05-30] MEDS ORDERED: Vancomycin Consult Pharmacy 1 EA OTHER SCH (10:30)
[2016-05-30] MEDS ORDERED: ACETAMINOPHEN 325 MG TAB PO PRN (10:30)
[2016-05-30] MEDS ORDERED: SODIUM CHLORIDE 0.9% FLUSH 5 ML FLUSH FLUSH PRN (10:30)
[2016-05-30] MEDS ORDERED: ONDANSETRON HCL 4 MG/2 ML VIAL IV PRN (10:30)
[2016-05-30] MEDS: SODIUM CHLORIDE 0.9% FLUSH 5 ML FLUSH FLUSH SCH ×2 (11:02→21:00)
[2016-05-30] MEDS: SODIUM CHLOR 0.9% 1000 ML INJ 1,000 ML IV SCH ×2 (11:04→20:32)
[2016-05-30] MEDS: VANCOMYCIN INJ 1,000 MG in SODIUM CHLOR 0.9% 250 ML INJ 250 ML IV SCH (14:06)
[2016-05-30] MEDS: MORPHINE SULFATE 4 MG/ML INJ IV PUSH PRN (15:29)
--- NOTE | 2016-05-30 16:42 | MB ---
cc: YENNY ZHONG DATE OF CONSULTATION: 05/30/2016. REASON FOR CONSULTATION: Right forearm abscess. HISTORY OF PRESENT ILLNESS: The patient is a 40-year-old left-hand dominant female with history of IV drug abuse presenting with complaints of pain and swelling over the right forearm region for the past three to four days. The patient states she injected methamphetamine into both upper extremities and started noticing pain and swelling over the right upper extremity. She also had abscess which was drained by the ER and the wound was packed with a packing material. The patient states she has pain radiating to the ring and the middle fingers. Denies any tingling or numbness. She gives a history of hepatitis C and endocarditis. Denies any fever or chills. PAST MEDICAL HISTORY / PAST SURGICAL HISTORY: Noted. PHYSICAL EXAMINATION: On examination, the patient is alert and oriented times three. Examination of the right upper extremity reveals a dressing over the forearm region. Examination after removal of the dressing reveals packing over the volar aspect of the forearm with surrounding induration. No purulent drainage noted. There is also evidence of swelling extending from the proximal forearm to the distal forearm region on the volar aspect. The compartment appears to be soft. On the lateral aspect of the swelling, there is some induration around the incision and drainage site. The patient is able to make a full fist. Terminal degrees of flexion are painful. On extension, terminal degrees of extension of the ring and middle fingers is limited and painful. She has intact sensation distally. She has intact distal circulation. LABORATORY DATA: Her lab work was reviewed. She has a white count of 10.4 and neutrophil shift of 68%. IMAGING STUDIES: She had a CT scan of the right upper extremity that shows evidence of subcutaneous abscess involving the volar aspect of the distal / mid-forearm. No evidence of deeper involvement. ASSESSMENT: 40-year-old female with history of IV drug abuse with abscess over the right forearm volar aspect status post incision and drainage. PLAN: The plan will be to continue with IV antibiotics and packing changes. I advised the patient to keep the limb elevated. Hand surgery will follow. If there is any worsening, we will proceed with formal incision and drainage. Yenny Zhong MD SE/SHIRIN /3:45 PM /4:34 PM MTDHumble
--- NOTE | 2016-05-30 22:37 | EKG ---
Date Performed: 05/30/2016 Time Performed: 07:59:03 PTAGE: 40 years EKG: Sinus rhythm POSSIBLE LEFT ATRIAL ENLARGEMENT INDETERMINATE AXIS INCOMPLETE RIGHT BUNDLE BRANCH BLOCK MODERATE T- WAVE ABNORMALITY, CONSIDER LATERAL ISCHEMIA ABNORMAL ECG NO PREVIOUS TRACING DOCTOR: Heena Leonard Interpretating Date/Time 05/30/2016 22:34:46
[2016-05-31] VITALS: BP 115/65; PULSE 60; RESP 18; TEMP 97.6; O2SAT 97
[2016-05-31] MEDS: CLINDAMYCIN INJ 600 MG in SODIUM CHLORIDE 0.9% INJ 100 ML IV SCH ×2 (00:18→09:46)
[2016-05-31] MEDS: MORPHINE SULFATE 4 MG/ML INJ IV PUSH PRN (00:18)
[2016-05-31] MEDS: VANCOMYCIN INJ 1,000 MG in SODIUM CHLOR 0.9% 250 ML INJ 250 ML IV SCH ×2 (01:12→12:27)
[2016-05-31] MEDS ORDERED: KETOROLAC TROMETHAMINE 30 MG/ML (IVP) VIAL IV PUSH PRN (01:15)
[2016-05-31 03:45] VITALS: BP 110/66; PULSE 70; RESP 16; TEMP 98.4; O2SAT 99
[2016-05-31] MEDS: KETOROLAC TROMETHAMINE 30 MG/ML (IVP) VIAL IV PUSH PRN ×3 (03:46→15:45)
--- NOTE | 2016-05-31 07:34 | HHI.FPPN ---
Subjective Remarks Patient seen and examined this am. Vitals are stable and afebrile. She reports improvement in swelling and movement. Pain controlled. Patient expressing a desire to go home, stating shes "having an issue with many people in the hospital," Nurse reports patients BF came to the floor to see her overnight and caused a seen and had to be asked to leave. Objective Vitals Vital Signs Date Time Temp Pulse Resp B/P Pulse Ox O2 Delivery O2 Flow Rate FiO2 05/31/16 05:37 16 05/31/16 03:45 98.4 70 16 110/66 99 05/31/16 00:45 16 05/31/16 00:00 97.6 60 18 115/65 97 05/30/16 20:00 98.1 96 18 115/60 98 05/30/16 18:15 96.1 74 16 111/48 99 05/30/16 15:38 63 18 105/52 97 Room Air 05/30/16 14:00 62 20 148/65 98 Room Air 05/30/16 13:00 54 20 140/61 97 Room Air 05/30/16 11:53 59 20 134/62 96 Room Air 05/30/16 11:05 18 05/30/16 09:35 20 05/30/16 09:32 60 20 117/58 100 Room Air I/O 05/30/16 05/30/16 05/30/16 05/31/16 05/31/16 05/31/16 07:00 15:00 23:00 07:00 15:00 23:00 Intake Total 960 ml 480 ml Balance 960 ml 480 ml Intake Oral 960 ml 480 ml # Voids 2 Result Diagram: 05/30/16 0740 05/30/16 0740 Imaging Last Impressions Upper Extremity CT 05/30/16 0000 Signed Impressions: Service Date/Time: Monday, May 30, 2016 08:51 - CONCLUSION: Abscess appears to be confined to the subcutaneous tissues without involvement of the deeper structures. Albino Arthur MD FACR Objective Remarks GENERAL: Sitting up in bed, sitting in bed, appears comfortable. NEURO: AOx3. Normal speech. ag service manager grossly intact. Moves left upper extremity and bilateral lower extremities with full ROM. She is able to flex and extend the hands, cannot make a complete fist. There is some swelling that has significant improved. Full ROM of her thumb. Sensation is intact in all fingers. Capillary refill is brisk in all fingers. Radial pulses are 2+ bilaterally. Commercial Loan Underwriter strength 5/5 of left hand, 4/5 of right hand. SKIN: Warm and dry. Multiple track amy injection sites noted on both arms. Right flexor forearm with 1 cm incision that is packed. There is no palpable induration or abscess but has surrounding erythema. There is scant blood at the incision site. HEAD: Normocephalic. Atraumatic. EYES: PERRL. EOMI. No scleral icterus. No injection or drainage. ENT: No nasal drainage. Moist mucous membranes. No oral ulcers or lesions. NECK: Supple, trachea midline. No JVD or lymphadenopathy. CARDIOVASCULAR: Regular rate and rhythm without murmurs, rubs, or gallops. Peripheral pulses 2+. Capillary refill < 2 seconds. RESPIRATORY: Breath sounds clear to auscultation and equal bilaterally, without wheezes, rales, or rhonchi. No accessory muscle use. GASTROINTESTINAL: Abdomen soft, nontender, nondistended, normal BS. No rebound tenderness. No guarding. MUSCULOSKELETAL: No edema, cyanosis, or clubbing. BACK: Nontender without obvious deformity. A/P Assessment and Plan 40 year old female with h/o IVDA, hepatitis C, bipolar disorder, schizophrenia presents to ED with progressively worsening pain and swelling of her right distal arm. She will be admitted and managed for the following: Discharge Planning D/C pending clinical improvement and further recommendations by hand surgery. sdw Eldon Perdomo, Ana Paula Problem List: (1) Tenosynovitis of right upper arm Status: Acute Plan: Improving. There is a significant concern for flexor tenosynovitis given the patient having decreased ROM and severe pain with extension of her right 3rd through 5th digits Dr. Gregory, hand surgery, is aware of the patient: plan to continue elevation of arm and abx and evaluate if any improvement, if no improvement will decided if formal surgical intervention needed CT with contrast of right forearm showing a subcutaneous abscess not invading muscle or dermis, no significant fluid; no evidence for osteomyelitis or bony involvement (see above) May advance diet Pain control with Morphine 2 mg IV q4h Toradol 15 mg IV q6hrs Continue Vanc & Clinda (05/30- ) (2) IV drug abuse Status: Chronic Plan: Patient reported injecting herself with cocaine as early as 4 days ago. She repeatedly denies any other use of IV drugs Currently there are no si/sxs concerning for bacteremia Afebrile, vitals are within normal limits Regular rate and rhythm without murmurs on exam No leukocytosis, lactic acid 0.6 Blood and wound culture obtained - Continue clindamycin 600 mg and Vancomycin 1 gm IV q12h (3) Nutrition, metabolism, and development symptoms Status: Acute Plan: Fluids: NS at maintenance rate Electrolytes:currently wnl, replete as needed Nutrition: regular diet DVT PPX: Paradise Lee MD R3 May 31, 2016 07:34
[2016-05-31 08:00] VITALS: BP 102/53; PULSE 63; RESP 16; TEMP 97.8; O2SAT 96
[2016-05-31 08:49] LABS: BICARBONATE 24.8 MEQ/L (21.0-32.0)
[2016-05-31 08:52] LABS: POTASSIUM 4.4 MEQ/L (3.5-5.1)
[2016-05-31 08:57] LABS: AUTOMATED NEUTROPHIL # 4.5 TH/MM3 (1.8-7.7); BASOPHIL # 0.1 TH/MM3 (0-0.2); BASOPHIL % 0.8 % (0.0-2.0); EOSINOPHIL # 0.1 TH/MM3 (0-0.4); EOSINOPHIL % 1.7 % (0.0-4.0); HEMATOCRIT 40.8 % (35.0-46.0); HEMO FLAGS DIFF FINAL; LYMPH % 30.8 % (9.0-44.0); LYMPHOCYTE # 2.5 TH/MM3 (1.0-4.8); MEAN CELL VOLUME 94.5 FL (80.0-100.0); MEAN CORPUSCULAR HEMOGLOBIN 31.7 PG (27.0-34.0); MEAN CORPUSCULAR HGB CONC 33.5 % (32.0-36.0); MONO % 11.7 % (0.0-8.0); PLATELET COUNT 157 TH/MM3 (150-450); RED BLOOD COUNT 4.32 MIL/MM3 (4.00-5.30); RED CELL DISTRIBUTION WIDTH 14.3 % (11.6-17.2); WHITE BLOOD COUNT 8.3 TH/MM3 (4.0-11.0)
[2016-05-31] MEDS: SODIUM CHLORIDE 0.9% FLUSH 5 ML FLUSH FLUSH SCH (09:55)
[2016-05-31 12:00] VITALS: BP 100/60; PULSE 72; RESP 16; TEMP 96.6; O2SAT 99
--- NOTE | 2016-05-31 12:14 | HHI.FPPN ---
Subjective Remarks Attending note: 40-year-old woman admitted through the emergency room with right upper extremity (forearm, wrist and hand) swelling and redness associated with IV drug usage. In the emergency room a superficial abscess was drained and packed. Patient has been cultured, is on antibiotics. Has a very significant social history with IV drug use to have included cocaine and methamphetamine in the past, actively using. Also reports a history of hepatitis C and significant psychiatric history. Refer to resident history and physical for complete details of past medical history, family history social history review of systems. Objective Vitals Vital Signs Date Time Temp Pulse Resp B/P Pulse Ox O2 Delivery O2 Flow Rate FiO2 05/31/16 08:00 97.8 63 16 102/53 96 05/31/16 05:37 16 05/31/16 03:45 98.4 70 16 110/66 99 05/31/16 00:45 16 05/31/16 00:00 97.6 60 18 115/65 97 05/30/16 20:00 98.1 96 18 115/60 98 05/30/16 18:15 96.1 74 16 111/48 99 05/30/16 15:38 63 18 105/52 97 Room Air 05/30/16 14:00 62 20 148/65 98 Room Air 05/30/16 13:00 54 20 140/61 97 Room Air I/O 05/30/16 05/30/16 05/30/16 05/31/16 05/31/16 05/31/16 07:00 15:00 23:00 07:00 15:00 23:00 Intake Total 960 ml 480 ml 480 ml Balance 960 ml 480 ml 480 ml Intake Oral 960 ml 480 ml 480 ml # Voids 2 Result Diagram: 05/31/16 0708 05/31/16 0708 Objective Remarks GENERAL: Sitting up in bed, sitting in bed, appears comfortable. Very conversive, appears very knowledgeable verbally with regards to medical conditions involving endocarditis and IV drug usage. Right upper extremity: Erythema from the distal arm through the elbow and distally, iodoform ribbon in right forearm reflecting where abscess was drained. Soft tissue swelling of the hand with erythema. Reported to be improved since admission. Refer to resident's physical exam for complete discussion of details of the remainder of exam. A/P Assessment and Plan Clinical assessment: 40-year-old woman actively using IV drugs admitted with an abscess and cellulitis of her right upper extremity. Appreciate hand surgery consultation. Agent seen and examined. Case reviewed and discussed with resident team. Agree with plan of care as discussed with me and documented in the resident note. Based on the conversation with patient this morning with the resident team and nurse, patient appears to have increased ideation of leaving the hospital early on. Patient was instructed that she does need to see the IV antibiotics through full course. Discharge Planning D/C pending clinical improvement and further recommendations by hand surgery. damiw Eldon Perdomo, Ana Paula Problem List: (1) Tenosynovitis of right upper arm Status: Acute Plan: Improving. There is a significant concern for flexor tenosynovitis given the patient having decreased ROM and severe pain with extension of her right 3rd through 5th [address] Dr. Gregory, hand surgery, is aware of the patient: plan to continue elevation of arm and abx and evaluate if any improvement, if no improvement will decided if formal surgical intervention needed CT with contrast of right forearm showing a subcutaneous abscess not invading muscle or dermis, no significant fluid; no evidence for osteomyelitis or bony involvement (see above) May advance diet Pain control with Morphine 2 mg IV q4h Toradol 15 mg IV q6hrs Continue Vanc & Clinda (05/30- ) (2) IV drug abuse Status: Chronic Plan: Patient reported injecting herself with cocaine as early as 4 days ago. She repeatedly denies any other use of IV drugs Currently there are no si/sxs concerning for bacteremia Afebrile, vitals are within normal limits Regular rate and rhythm without murmurs on exam No leukocytosis, lactic acid 0.6 Blood and wound culture obtained - Continue clindamycin 600 mg and Vancomycin 1 gm IV q12h (3) Nutrition, metabolism, and development symptoms Status: Acute Plan: Fluids: NS at maintenance rate Electrolytes:currently wnl, replete as needed Nutrition: regular diet DVT PPX: Chilango Fuentes MD May 31, 2016 12:14
--- NOTE | 2016-05-31 12:49 | HHI.PR ---
Subjective Remarks complains of pain over right forearm region no fever complaint with limb elevation denies any tingling or numbness Objective Vital Signs Date Time Temp Pulse Resp B/P Pulse Ox O2 Delivery O2 Flow Rate FiO2 05/31/16 08:00 97.8 63 16 102/53 96 05/31/16 05:37 16 05/31/16 03:45 98.4 70 16 110/66 99 05/31/16 00:45 16 05/31/16 00:00 97.6 60 18 115/65 97 05/30/16 20:00 98.1 96 18 115/60 98 05/30/16 18:15 96.1 74 16 111/48 99 05/30/16 15:38 63 18 105/52 97 Room Air 05/30/16 14:00 62 20 148/65 98 Room Air 05/30/16 13:00 54 20 140/61 97 Room Air I/O 05/30/16 05/30/16 05/30/16 05/31/16 05/31/16 05/31/16 07:00 15:00 23:00 07:00 15:00 23:00 Intake Total 960 ml 480 ml 480 ml Balance 960 ml 480 ml 480 ml Intake Oral 960 ml 480 ml 480 ml # Voids 2 right forearm: packing in place swelling, erythema noted over the volar aspect of the forearm surrounding induration noted more so over the distal one third of the volar forearm no evidence of compartment syndrome able to make a full fist, terminal degrees of extension of the middle and ring fingers is painful intact sensation distally intact distal circulation wbc normal no shift Result Diagram: 05/31/16 0708 05/31/16 0708 Assessment and Plan Assessment and Plan 40 year old female with h/o IDVA and abscess over the right forearm s/p I and D by ED Plan: will obtain soft tissue ultrasound right forearm packing removed and repacked after cleaning with normal saline dry dressing applied continue with iv antibiotics will need formal I and D if no improvement or based on ultra sound. hand surgery will follow Denilson Gregory MD May 31, 2016 12:49
--- NOTE | 2016-05-31 15:34 | RADRPT ---
EXAM DATE/TIME: 05/31/2016 13:52 [facility] COMPARISON: CT FOREARM RIGHT W CONTRAST, May 30, 2016, 8:51. INDICATIONS : Abscess. MEDICAL HISTORY : . Hepatitis C. Endometriosis. Arthritis. Bipolar disorder. Schizophrenia. Post traumatic s tress disorder. Substance abuse. SURGICAL HISTORY : Appendectomy. Left salpingectomy. Laporoscopy. ENCOUNTER: Initial ACUITY: 4-6 days PAIN SCORE: 3/10 LOCATION: Right arm. AREA EVALUATED: Right wrist. FINDINGS: Ramirez scale and Doppler imaging in the area of clinical interest was performed in the region of the ri ght wrist. There is diffuse subcutaneous edema. No undrained abscess or fluid collection is identifie d. The tissue in this region is hyperemic. There is a wound anteriorly that contains packing. CONCLUSION: Edematous and hyperemic soft tissues of the right wrist. No undrained abscess or fluid collection is visualized. Geovanny Mohan MD on May 31, 2016 at 15:30 Board Certified Radiologist. This report was verified electronically.
[2016-05-31 16:00] VITALS: BP 110/58; PULSE 88; RESP 18; TEMP 98.7; O2SAT 96
--- NOTE | 2016-05-31 17:33 | PD.AMA ---
Against Medical Advice Note Diagnosis: (1) Tenosynovitis of right upper arm (2) IV drug abuse Discharge Disposition: Against Medical Advice Pt Condition on Discharge: Stable AMA Statement Nurses called at 1730 stating that patient left AMA. Patient Lesli Callejas has decided to leave the hospital against medical advice. This patient has the capacity to refuse care and understands the risks of leaving, including permanent disability and/or , and has had an opportunity to ask questions about her condition. The patient has been informed that she may return for care at any time, and follow up has been advised. Please see day team notes for details regarding patient's medical care and recommendations. Roya Anaya MD R1 May 31, 2016 17:32
[2016-05-31] MEDS ORDERED: PHARMACY ORDERED LAB-VANCO TROUGH XX ONE (23:45)
== END 2016-05-31 17:51 | disposition left against medical advice (07) | DRG 603 ==
LOC: NEPE 06:32 → NEDA 08:15 → NEDH 08:49 → HOCA 18:04
PROVIDERS: ADMIT Family Medicine; ATTEND Family Medicine
PROC: 0H9DXZZ Drainage of Right Lower Arm Skin, External Approach (ICD-10-PCS; principal; 2016-05-30)
DX: L02.413 Cutaneous abscess of right upper limb (principal); R64 Cachexia; M65.831 Other synovitis and tenosynovitis, right forearm; F14.10 Cocaine abuse, uncomplicated; B19.20 Unspecified viral hepatitis C without hepatic coma; K59.09 Other constipation; F20.9 Schizophrenia, unspecified; F31.9 Bipolar disorder, unspecified; F17.210 Nicotine dependence, cigarettes, uncomplicated; Z68.25 Body mass index [BMI] 25.0-25.9, adult; Z88.0 Allergy status to penicillin; Z88.2 Allergy status to sulfonamides
CPT/HCPCS: 10061; 73201; 76882; 76937; 80048; 83605; 85025; 87040; 87070; 87077; 87185; 87205; 93005; 96374; J1885; J2270; J2405; J3370; J7030; J7050; Q9967

== ENCOUNTER 2016-06-04 11:12 | Inpatient (IN) | payer SELFPAY ==
[~2016-06-04] VITALS: Ht 157.5 cm; Wt 49.9 kg
[2016-06-04 11:15] VITALS: BP 120/58; PULSE 72; RESP 24; TEMP 97.3; O2SAT 97
--- NOTE | 2016-06-04 11:51 | PD ---
HPI Chief Complaint: Skin Problem Time Seen by Provider: 11:51 Travel History International Travel<30 days: No Contact w/Intl Traveler<30days: No Traveled to known affect area: No History of Present Illness HPI 40-year-old female with history of IV drug abuse and hepatitis C presents to emergency department for evaluation of another abscess on her right anterior forearm over the radial artery. Patient checked herself out AGAINST MEDICAL ADVICE on June 01 following a diagnosis of right forearm tenosynovitis. She states that she became scared when they were talking about going to the OR. She left without any antibiotics or pain control. That abscess resolved but another abscess has occurred distal and lateral to the previous one. Patient reports significant pain radiating to her right thumb. Penis is exacerbated by movement of the right thumb. She has been nauseous, vomiting, subjective fever and chills. No other symptoms at this time. PFSH Past Medical History Arthritis: Yes Autoimmune Disease: No Anxiety: Yes Depression: Yes Cancer: Yes (Dysplasia) Cardiovascular Problems: No Chemotherapy: No Cerebrovascular Accident: No Diabetes: No Diminished Hearing: No Endocrine: No Genitourinary: No Hepatitis: Yes (Hep C ) Immune Disorder: No Musculoskeletal: Yes Neurologic: No Psychiatric: Yes (BIPOLAR, SCHIZO) Reproductive: Yes (endometriosis) Respiratory: No Immunizations Current: Yes Migraines: No Radiation Therapy: No Seizures: No PNEUMOCCOCAL Vaccine (Year): 2 ?: Not : 4 Para: 1 Miscarriage: 2 : 1 Ectopic : No Ovarian Cysts: No Tubal Ligation: Yes (LEFT ONLY) Past Surgical History Appendectomy: Yes Gynecologic Surgery: Yes (laproscopy) Hysterectomy: No Other Surgery: Yes (Left fallopian tube removed age 21) Social History Alcohol Use: No Tobacco Use: Yes (1 PPD) Substance Use: Yes (inject cocaine) Allergies-Medications (Allergen,Severity, Reaction): Coded Allergies: Penicillin (Verified Allergy, Severe, GI UPSET, 06/04/16) Sulfa (Verified Allergy, Intermediate, GI , 06/04/16) Betadine (Verified Allergy, Mild, RASH, 06/04/16) Barium Sulfate (Verified Allergy, Unknown, PT GETS A RASH WITH BETADINE, ) Reported Meds & Prescriptions Reported Meds & Active Scripts Active No Active Prescriptions or Reported Medications Review of Systems Except as stated in HPI: all other systems reviewed are Neg Physical Exam Narrative GENERAL: Well-nourished female patient, lying in the stretcher, no acute distress SKIN: One and a half similar horizontal laceration on the medial aspect of the anterior right forearm. This appears to be healing without any erythema or edema. There is an indurated area in the lateral aspect of the anterior right forearm which measures about 3 cm in diameter. It is fluctuant but there is no pointing or drainage. There is a zone of inflammation around it but no lymphangitis. HEAD: Atraumatic. Normocephalic. EYES: Pupils equal and round. No scleral icterus. No injection or drainage. ENT: No nasal bleeding or discharge. Mucous membranes pink and moist. NECK: Trachea midline. No JVD. CARDIOVASCULAR: Regular rate and rhythm. No murmur appreciated. RESPIRATORY: No accessory muscle use. Clear to auscultation. Breath sounds equal bilaterally. GASTROINTESTINAL: Abdomen soft, non-tender, nondistended. Hepatic and splenic margins not palpable. MUSCULOSKELETAL: No obvious deformities. No clubbing. No cyanosis. No edema. Patient is unable to flex or extend the thumb without significant pain. This does not seem to be the same pain or limitations range of motion with digits 2 through 5 NEUROLOGICAL: Awake and alert. No obvious cranial nerve deficits. Motor grossly within normal limits. Normal speech. PSYCHIATRIC: Appropriate mood and affect; insight and judgment normal. Data Data Last Documented VS Vital Signs Date Time Temp Pulse Resp B/P Pulse Ox O2 Delivery O2 Flow Rate FiO2 06/04/16 11:15 97.3 72 24 120/58 97 Room Air Orders Complete Blood Count With Diff (06/04/16 11:50) Basic Metabolic Panel (Bmp) (06/04/16 11:50) Blood Culture (06/04/16 11:50) Lactic Acid Sepsis Protocol (06/04/16 11:50) Us Arm Soft Tissue (06/04/16 ) Tetanus/Diphtheria Tox Adult (Tetanus/Di (06/04/16 13:00) Lidocai-Epi 2%-1:100,000 Inj (Xylocaine- (06/04/16 13:00) Lidocaine 2% Inj (Xylocaine 2% Inj) (06/04/16 13:15) Labs Laboratory Tests Test 06/04/16 12:09 White Blood Count 7.1 TH/MM3 Red Blood Count 4.71 MIL/MM3 Hemoglobin 14.3 GM/DL Hematocrit 43.6 % Mean Corpuscular Volume 92.5 FL Mean Corpuscular Hemoglobin 30.4 PG Mean Corpuscular Hemoglobin 32.9 % Concent Red Cell Distribution Width 13.9 % Platelet Count 199 TH/MM3 Mean Platelet Volume 10.5 FL Neutrophils (%) (Auto) 55.3 % Lymphocytes (%) (Auto) 34.7 % Monocytes (%) (Auto) 8.1 % Eosinophils (%) (Auto) 1.1 % Basophils (%) (Auto) 0.8 % Neutrophils # (Auto) 3.9 TH/MM3 Lymphocytes # (Auto) 2.5 TH/MM3 Monocytes # (Auto) 0.6 TH/MM3 Eosinophils # (Auto) 0.1 TH/MM3 Basophils # (Auto) 0.1 TH/MM3 CBC Comment DIFF FINAL Differential Comment Sodium Level 141 MEQ/L Potassium Level 4.3 MEQ/L Chloride Level 104 MEQ/L Carbon Dioxide Level 30.7 MEQ/L Anion Gap 6 MEQ/L Blood Urea Nitrogen 10 MG/DL Creatinine 0.79 MG/DL Estimat Glomerular Filtration 81 ML/MIN Rate Random Glucose 89 MG/DL Lactic Acid Level 1.5 mmol/L Calcium Level 8.9 MG/DL MDM Medical Decision Making Medical Screen Exam Complete: Yes Emergency Medical Condition: Yes Medical Record Reviewed: Yes Differential Diagnosis Abscess versus tenosynovitis versus sepsis Narrative Course 40 year-old female presents to emergency department for evaluation of an abscess on her right forearm after checking herself out AGAINST MEDICAL ADVICE. Work up was initiated in triage. CBC is without leukocytosis. CMP is without acute concern Blood cultures have been sent. Ultrasound is complete and shows 2.3 cm somewhat ovoid complex area probable fluid collection with vascularity anterior right wrist. Abscess suspect or hematoma Scripts No Active Prescriptions or Reported Meds Condition: Stable Brooke Eason Jun 04, 2016 11:51
[2016-06-04 12:28] LABS: AUTOMATED NEUTROPHIL # 3.9 TH/MM3 (1.8-7.7); BASOPHIL # 0.1 TH/MM3 (0-0.2); BASOPHIL % 0.8 % (0.0-2.0); EOSINOPHIL # 0.1 TH/MM3 (0-0.4); EOSINOPHIL % 1.1 % (0.0-4.0); HEMATOCRIT 43.6 % (35.0-46.0); HEMO FLAGS DIFF FINAL; LYMPH % 34.7 % (9.0-44.0); LYMPHOCYTE # 2.5 TH/MM3 (1.0-4.8); MEAN CELL VOLUME 92.5 FL (80.0-100.0); MEAN CORPUSCULAR HEMOGLOBIN 30.4 PG (27.0-34.0); MEAN CORPUSCULAR HGB CONC 32.9 % (32.0-36.0); MONO % 8.1 % (0.0-8.0); NEUT % 55.3 % (16.0-70.0); PLATELET COUNT 199 TH/MM3 (150-450); RED BLOOD COUNT 4.71 MIL/MM3 (4.00-5.30); RED CELL DISTRIBUTION WIDTH 13.9 % (11.6-17.2); WHITE BLOOD COUNT 7.1 TH/MM3 (4.0-11.0)
[2016-06-04 12:40] LABS: BICARBONATE 30.7 MEQ/L (21.0-32.0); POTASSIUM 4.3 MEQ/L (3.5-5.1)
--- NOTE | 2016-06-04 12:40 | RADRPT ---
EXAM DATE/TIME: 06/04/2016 12:16 [facility] COMPARISON: US ARM RIGHT, May 31, 2016, 13:52. INDICATIONS : Abscess. MEDICAL HISTORY : Chronic obstructive pulmonary disease. Arthritis. Hepatitis C. Bipolar disorder. IV drug abuse. SURGICAL HISTORY : Tubal ligation. Appendectomy. ENCOUNTER: Subsequent ACUITY: 4-6 days PAIN SCORE: 7/10 LOCATION: Right arm. AREA EVALUATED: Right anterior wrist. FINDINGS: There is a 1.8 x 2.3 cm area anterior right wrist of complex fluid collection. Most likely represents abscess or hematoma. CONCLUSION: 2.3 cm somewhat ovoid complex area probable fluid collection with vascularity anterior right wrist. A bscess suspect or hematoma Kirill Llamas MD on June 04, 2016 at 12:37 Board Certified Radiologist. This report was verified electronically.
[2016-06-04] MEDS ORDERED: LIDOCAINE 2%/EPINEPHrine 1:100,000 30ML MDV INFIL ONE (13:00)
[2016-06-04] MEDS ORDERED: TETANUS/DIPHTHERIA TOXOID ADULT 0.5 ML VIAL IM ONE (13:00)
[2016-06-04] MEDS ORDERED: LIDOCAINE HCL 2% 20 ML VIAL INFIL ONE (13:15)
--- NOTE | 2016-06-04 13:43 | PD ---
Physical Exam Date Seen by Provider: Jun 04, 2016 Narrative Full history and physical examination please see previous provider's note. I assumed care of this patient from triage. Patient is reporting to me 10 out of 10 pain with flexion of her right hand and in the abscess on the volar aspect of the right wrist. She admits to injecting IV drugs last week, she denies using any IV drugs since then. She states that she has been clean for 7 years but binged recently. She has no other complaints at this time. Data Data Last Documented VS Vital Signs Date Time Temp Pulse Resp B/P Pulse Ox O2 Delivery O2 Flow Rate FiO2 06/04/16 11:15 97.3 72 24 120/58 97 Room Air Orders Complete Blood Count With Diff (06/04/16 11:50) Basic Metabolic Panel (Bmp) (06/04/16 11:50) Blood Culture (06/04/16 11:50) Lactic Acid Sepsis Protocol (06/04/16 11:50) Us Arm Soft Tissue (06/04/16 ) Tetanus/Diphtheria Tox Adult (Tetanus/Di (06/04/16 13:00) Lidocai-Epi 2%-1:100,000 Inj (Xylocaine- (06/04/16 13:00) Lidocaine 2% Inj (Xylocaine 2% Inj) (06/04/16 13:15) Ketorolac Inj (Toradol Inj) (06/04/16 13:45) Clindamycin (Cleocin) (06/04/16 13:45) Ondansetron Odt (Zofran Odt) (06/04/16 13:45) Iv Access Insert/Monitor (06/04/16 14:24) Vancomycin Inj (Vancomycin Inj) (06/04/16 14:30) Consult Hand Surgery (06/04/16 ) (Hub Use Only)Inp Phy Cons/Ref (06/04/16 ) Admit Order (Ed Use Only) (06/04/16 14:47) Labs Laboratory Tests Test 06/04/16 12:09 White Blood Count 7.1 TH/MM3 Red Blood Count 4.71 MIL/MM3 Hemoglobin 14.3 GM/DL Hematocrit 43.6 % Mean Corpuscular Volume 92.5 FL Mean Corpuscular Hemoglobin 30.4 PG Mean Corpuscular Hemoglobin 32.9 % Concent Red Cell Distribution Width 13.9 % Platelet Count 199 TH/MM3 Mean Platelet Volume 10.5 FL Neutrophils (%) (Auto) 55.3 % Lymphocytes (%) (Auto) 34.7 % Monocytes (%) (Auto) 8.1 % Eosinophils (%) (Auto) 1.1 % Basophils (%) (Auto) 0.8 % Neutrophils # (Auto) 3.9 TH/MM3 Lymphocytes # (Auto) 2.5 TH/MM3 Monocytes # (Auto) 0.6 TH/MM3 Eosinophils # (Auto) 0.1 TH/MM3 Basophils # (Auto) 0.1 TH/MM3 CBC Comment DIFF FINAL Differential Comment Sodium Level 141 MEQ/L Potassium Level 4.3 MEQ/L Chloride Level 104 MEQ/L Carbon Dioxide Level 30.7 MEQ/L Anion Gap 6 MEQ/L Blood Urea Nitrogen 10 MG/DL Creatinine 0.79 MG/DL Estimat Glomerular Filtration 81 ML/MIN Rate Random Glucose 89 MG/DL Lactic Acid Level 1.5 mmol/L Calcium Level 8.9 MG/DL [facility] Medical Record Reviewed: Yes Supervised Visit with GLORY: No Interpretation(s) Last Impressions Upper Extremity Ultrasound 06/04/16 0000 Signed Impressions: Service Date/Time: Saturday, June 04, 2016 12:16 - CONCLUSION: 2.3 cm somewhat ovoid complex area probable fluid collection with vascularity anterior right wrist. Abscess suspect or hematoma Kirill Llamas MD Laboratory Tests Test 06/04/16 12:09 White Blood Count 7.1 TH/MM3 Red Blood Count 4.71 MIL/MM3 Hemoglobin 14.3 GM/DL Hematocrit 43.6 % Mean Corpuscular Volume 92.5 FL Mean Corpuscular Hemoglobin 30.4 PG Mean Corpuscular Hemoglobin 32.9 % Concent Red Cell Distribution Width 13.9 % Platelet Count 199 TH/MM3 Mean Platelet Volume 10.5 FL Neutrophils (%) (Auto) 55.3 % Lymphocytes (%) (Auto) 34.7 % Monocytes (%) (Auto) 8.1 % Eosinophils (%) (Auto) 1.1 % Basophils (%) (Auto) 0.8 % Neutrophils # (Auto) 3.9 TH/MM3 Lymphocytes # (Auto) 2.5 TH/MM3 Monocytes # (Auto) 0.6 TH/MM3 Eosinophils # (Auto) 0.1 TH/MM3 Basophils # (Auto) 0.1 TH/MM3 CBC Comment DIFF FINAL Differential Comment Sodium Level 141 MEQ/L Potassium Level 4.3 MEQ/L Chloride Level 104 MEQ/L Carbon Dioxide Level 30.7 MEQ/L Anion Gap 6 MEQ/L Blood Urea Nitrogen 10 MG/DL Creatinine 0.79 MG/DL Estimat Glomerular Filtration 81 ML/MIN Rate Random Glucose 89 MG/DL Lactic Acid Level 1.5 mmol/L Calcium Level 8.9 MG/DL Vital Signs Date Time Temp Pulse Resp B/P Pulse Ox O2 Delivery O2 Flow Rate FiO2 06/04/16 11:15 97.3 72 24 120/58 97 Room Air Differential Diagnosis Tenosynovitis versus abscess versus cellulitis versus osteomyelitis versus sepsis Narrative Course She is a 40-year-old female with a history of IVDU presenting to emergency department today for a new abscess that developed on her right forearm on the volar aspect. Patient was seen and evaluated in the emergency department on and admitted to the hospital for tenosynovitis, patient left AMA stating she was scared to have surgery. She continues to have pain with extension of her fingers on her right hand. Patient was protocoled in triage, CBC is unremarkable, chemistry is unremarkable, lactic acid is normal. Patient's vital signs are stable, she is afebrile. Patient an ultrasound performed on 05/31/16 which revealed soft tissue edema, a repeat ultrasound today shows a 2.3 cm somewhat ovoid complex area probable fluid collection with vascularity anterior to the right wrist abscess was suspected or hematoma. Please see procedure report for I&D. Discussed with Dr. Garza who patient is known to from previous admission, he recommended the patient be admitted to medicine. Spoke with Dr. Keene who accepted admission. Patient is agreeable to stay this time, IV access initiated , IV fluids and IV vancomycin ordered. Offer pain, she states her pain is currently well controlled. Diagnosis Primary Impression: Tenosynovitis of right upper arm Admitting Information Admitting Physician Requests: Admit Scripts No Active Prescriptions or Reported Meds Condition: Stable Shila Harman Jun 04, 2016 13:43
[2016-06-04] MEDS ORDERED: CLINDAMYCIN 150 MG CAP PO ONE (13:45)
[2016-06-04] MEDS ORDERED: ONDANSETRON ODT 4 MG TAB PO ONE (13:45)
[2016-06-04] MEDS ORDERED: KETOROLAC TROMETHAMINE 60 MG/2 ML (IM) VIAL IM ONE (13:45)
[2016-06-04] MEDS ORDERED: VANCOMYCIN INJ 1,000 MG in SODIUM CHLOR 0.9% 250 ML INJ 250 ML IV ONE (14:30)
[2016-06-04] MEDS ORDERED: Vancomycin Consult Pharmacy 1 EA XX SCH (15:15)
[2016-06-04] MEDS ORDERED: SODIUM CHLORIDE 0.9% FLUSH 5 ML FLUSH IV PRN (15:15)
[2016-06-04] MEDS ORDERED: VANCOMYCIN 1,000 MG/NS 250 ML IV ONE ×2 (15:30)
[2016-06-04] MEDS ORDERED: VANCOMYCIN INJ 1,000 MG in SODIUM CHLOR 0.9% 250 ML INJ 250 ML IV SCH (16:15)
[2016-06-04] MEDS: cefTRIAXone INJ 1,000 MG in SODIUM CHLORIDE 0.9% INJ 100 ML IV SCH (16:18)
--- NOTE | 2016-06-04 16:42 | HHI.HP ---
[facility] No Primary Care Physician Admission Diagnosis abscess, flexor tenosynovitis Diagnoses: (1) Abscess of forearm, right Diagnosis: Principal Chief Complaint: abscess of the right forearm Travel History International Travel<30 Days: No Contact w/Intl Traveler <30 Da: No Traveled to Known Affected Are: No History of Present Illness patient is a 40 y/o female with history of IVDA, the last cocaine injection was eight days ago. she started to have infection of the right wrist a few days after the injection. she was admitted to this hospital about a week ago but decided to sign out against medical advice. she says that the swelling got worse and she decided to come back to ER. she denies any fever but had some chills. the pain at the site was fairly controlled at the time of my evaluation. Review of Systems Constitutional: COMPLAINS OF: Chills, DENIES: Fever, Weight loss, Night Sweats Eyes: DENIES: Blurred vision, Diplopia, Vision loss, Double Vision Ears, nose, mouth, throat: DENIES: Tinnitus, Vertigo, Throat pain, Epistaxis Respiratory: DENIES: Apneas, Cough, Snoring, Wheezing, Hemoptysis, Sputum production, Shortness of breath Cardiovascular: DENIES: Chest pain, Palpitations, Syncope, Dyspnea on Exertion , PND, Lower Extremity Edema, Orthopnea, Claudication Gastrointestinal: DENIES: Abdominal pain, Black stools, Bloody stools, Constipation, Diarrhea, Nausea, Vomiting, Difficulty Swallowing, Anorexia Genitourinary: DENIES: Urinary frequency, Urgency, Hematuria, Dysuria Musculoskeletal: COMPLAINS OF: Joint pain (right wrist), DENIES: Muscle aches , Stiffness, Joint Swelling Integumentary: DENIES: Rash Neurologic: DENIES: Abnormal gait, Headache, Localized weakness, Paresthesias, Seizures, Speech Problems, Tremor, Poor Balance Psychiatric: DENIES: Anxiety, Confusion, Mood changes, Depression, Hallucinations, Agitation, Suicidal Ideation, Homicidal Ideation, Delusions Past Family Social History Past Medical History hepatitis C Past Surgical History laparoscopy appendectomy Reported Medications none reported. Allergies: Coded Allergies: Penicillin (Verified Allergy, Severe, GI UPSET, 06/04/16) Sulfa (Verified Allergy, Intermediate, GI , 06/04/16) Betadine (Verified Allergy, Mild, RASH, 06/04/16) Barium Sulfate (Verified Allergy, Unknown, PT GETS A RASH WITH BETADINE, ) Active Ordered Medications Current Medications Tetanus/ Diphtheria Toxoids (Tetanus/ Diphtheria Tox Adult) 0.5 ml ONCE ONCE IM ; Start 06/04/16 at 13:00; Stop 06/04/16 at 13:01; Status DC Lidocaine/ Epinephrine (Xylocaine-Epi 2%-1:100,000 Inj) 10 ml ONCE ONCE INFIL ; Start 06/04/16 at 13:00; Stop 06/04/16 at 13:10; Status DC Lidocaine HCl (Xylocaine 2% Inj) 10 ml ONCE ONCE INFIL Last administered on 13:19; Start 06/04/16 at 13:15; Stop 06/04/16 at 13:16; Status DC Ketorolac Tromethamine (Toradol Inj) 60 mg ONCE ONCE IM Last administered on 13:48; Start 06/04/16 at 13:45; Stop 06/04/16 at 13:46; Status DC Clindamycin HCl (Cleocin) 450 mg ONCE ONCE PO Last administered on 06/04/16 13:48; Start 06/04/16 at 13:45; Stop 06/04/16 at 13:46; Status DC Ondansetron HCl 4 mg 4 mg ONCE ONCE PO Last administered on 06/04/16 13:48; Start 06/04/16 at 13:45; Stop 06/04/16 at 13:46; Status DC Vancomycin HCl/ Sodium Chloride (Vancomycin Inj/ NS 250 ml Inj) 250 ml @ 250 mls/hr ONCE ONCE IV ; Start 06/04/16 at 14:30; Stop 06/04/16 at 15:29; Status Cancel IV Flush (NS Flush) 2 ml BID IV ; Start 06/04/16 at 21:00 IV Flush 2 ml 2 ml UNSCH PRN IV FLUSH AFTER USING IV ACCESS; Start 06/04/16 at 15:15 Pharmacy Profile Note (Vancomycin Consult Pharmacy) 0 ml @ 0 mls/hr UNSCH XX ; Start 06/04/16 at 15:15 Ketorolac Tromethamine 30 mg 30 mg Q6H PRN IVP BREAKTHROUGH PAIN; Start at 15:15; Stop 06/09/16 at 15:14 Vancomycin HCl 1000 mg/Sodium Chloride 250 ml @ 250 mls/hr Q12H IV ; Start at 16:15; Status UNV Ceftriaxone Sodium 1000 mg/ Sodium Chloride 100 ml @ 200 mls/hr Q24H IV Last administered on 06/04/16 16:18; Start 06/04/16 at 16:00 Vancomycin HCl 1000 mg/Sodium Chloride 250 ml @ 250 mls/hr ONCE ONCE IV Last administered on 06/04/16 15:26; Start 06/04/16 at 15:30; Stop 06/04/16 at 16:29 Vancomycin HCl/ Sodium Chloride (Vancomycin Inj/ NS 250 ml Inj) 257.5 ml @ 250 mls/hr Q12H IV ; Start 06/05/16 at 03:00 Miscellaneous Information SPECIFIC LAB TO BE DRAWN:VANCOMYCIN TROUGH DATE TO... ONCE ONCE XX ; Start 06/06/16 at 02:45; Stop 06/06/16 at 02:46 Family History not relevant to this admission. Social History smokes a pack a day. doesn't drink. uses IV drugs. Physical Exam Vital Signs Vital Signs Date Time Temp Pulse Resp B/P Pulse Ox O2 Delivery O2 Flow Rate FiO2 06/04/16 11:15 97.3 72 24 120/58 97 Room Air Physical Exam GENERAL: This is a well-nourished, well-developed patient, in no apparent distress. SKIN: cellulitis and abscess of the right wrist- these have been drained in ER. HEAD: Atraumatic. Normocephalic. No temporal or scalp tenderness. EYES: Pupils equal round and reactive. Extraocular motions intact. No scleral icterus. No injection or drainage. ENT: Nose without bleeding, purulent drainage or septal hematoma. Throat without erythema, tonsillar hypertrophy or exudate. Uvula midline. Airway patent. NECK: Trachea midline. No JVD or lymphadenopathy. Supple, nontender, no meningeal signs. CARDIOVASCULAR: Regular rate and rhythm without murmurs, gallops, or rubs. RESPIRATORY: Clear to auscultation. Breath sounds equal bilaterally. No wheezes , rales, or rhonchi. GASTROINTESTINAL: Abdomen soft, non-tender, nondistended. No hepato-splenomegaly , or palpable masses. No guarding. MUSCULOSKELETAL: Extremities without clubbing, cyanosis, or edema. No joint tenderness, effusion, or edema noted. No calf tenderness. Negative Homans sign bilaterally. NEUROLOGICAL: Awake and alert. Cranial nerves II through XII intact. Motor and sensory grossly within normal limits. Five out of 5 muscle strength in all muscle groups. Normal speech. Laboratory Laboratory Tests Test 06/04/16 12:09 White Blood Count 7.1 Red Blood Count 4.71 Hemoglobin 14.3 Hematocrit 43.6 Mean Corpuscular Volume 92.5 Mean Corpuscular Hemoglobin 30.4 Mean Corpuscular Hemoglobin 32.9 Concent Red Cell Distribution Width 13.9 Platelet Count 199 Mean Platelet Volume 10.5 Neutrophils (%) (Auto) 55.3 Lymphocytes (%) (Auto) 34.7 Monocytes (%) (Auto) 8.1 Eosinophils (%) (Auto) 1.1 Basophils (%) (Auto) 0.8 Neutrophils # (Auto) 3.9 Lymphocytes # (Auto) 2.5 Monocytes # (Auto) 0.6 Eosinophils # (Auto) 0.1 Basophils # (Auto) 0.1 CBC Comment DIFF FINAL Differential Comment Sodium Level 141 Potassium Level 4.3 Chloride Level 104 Carbon Dioxide Level 30.7 Anion Gap 6 Blood Urea Nitrogen 10 Creatinine 0.79 Estimat Glomerular Filtration 81 Rate Random Glucose 89 Lactic Acid Level 1.5 Calcium Level 8.9 Date/Time Procedure Status Source Growth 06/04/16 12:09 Aerobic Blood Culture Received Blood Other Pending 06/04/16 12:09 Anaerobic Blood Culture Received Blood Other Pending Result Diagram: 06/04/16 1209 06/04/16 1209 Imaging Last Impressions Upper Extremity Ultrasound 06/04/16 0000 Signed Impressions: Service Date/Time: Saturday, June 04, 2016 12:16 - CONCLUSION: 2.3 cm somewhat ovoid complex area probable fluid collection with vascularity anterior right wrist. Abscess suspect or hematoma Kirill Llamas MD Assessment and Plan Assessment and Plan A/P - cellulitis/abscess of the right wrist continue with broad spectrum IV antibiotics- continue pain control- follow the cultures keep the right hand elevated- hand surgery consulted. -hepatitis C- f/u as outpatient. Discussed Condition With the patient. Physician Certification 2 Midnight Certification Type: Admission for Inpatient Services Order for Inpatient Services The services are ordered in accordance with Medicare regulations or non- Medicare payer requirements, as applicable. In the case of services not specified as inpatient-only, they are appropriately provided as inpatient services in accordance with the 2-midnight benchmark. Estimated LOS (days): 2 days is the estimated time the patient will need to remain in the hospital, assuming treatment plan goals are met and no additional complications. Post-Hospital Plan: Home Robin Dickson MD Jun 04, 2016 16:41
[2016-06-04] MEDS ORDERED: ACETAMINOPHEN 325 MG TAB PO PRN (16:45)
[2016-06-04] MEDS ORDERED: ONDANSETRON HCL 4 MG/2 ML VIAL IV PUSH PRN (16:45)
--- NOTE | 2016-06-04 19:59 | MB ---
cc: YENNY ZHONG MD DATE OF CONSULTATION 06/04/2016 CONSULTATION Right forearm abscess. HISTORY OF THE PRESENT ILLNESS The patient is a 40-year-old female with history of IV drug abuse presenting to the ER with complaints of pain, swelling over the right forearm for the past two to three days. The patient was seen in the hospital last week. She underwent incision and drainage and she signed out AMA. She complains of worsening pain and swelling. The patient had incision and drainage of abscess at a second location over the volar aspect of the forearm today. She complains of numbness involving the index and the thumb that started yesterday. She also states the numbness, tingling is getting better. She also complains of pain with range of motion of the fingers. Denies any repeat IV drug abuse. Denies any fever. Denies any chills. PAST MEDICAL AND SURGICAL HISTORY Are noted. Significant for: 1. Hepatitis C. 2. And the incision and drainage of right volar forearm abscess last week. EXAMINATION GENERAL: The patient is alert, oriented x3. EXTREMITIES: Examination of right forearm reveals new incision site in a transverse fashion measuring about 1 cm over the volar aspect of the distal forearm. This location is distal and lateral to the previous I&D. There is evidence of surrounding induration measuring about 3 cm. No evidence of gross fluctuation noted. Packing of the wound was noted. Based on ED recurrence about a few cc of purulent material was drained from the region. She has intact capillary refill. The patient is able to make a full fist. She was extension of the fingers. terminal degrees of extension of the index finger is limited and painful. Decreased sensation over the index and the thumb noted. The volar flexor compartment appears to be soft. No evidence of compartment syndrome noted. LABORATORY DATA She has white count of 7.1 and shift of 55%. IMAGING She had ultrasound of the right upper extremity showed complex fluid collection measuring about 1.8 x 3.0 cm over the volar aspect of the distal forearm which was drained by the ED. ASSESSMENT A 40-year-old female with history of IV drug abuse with recurrent forearm abscess. PLAN The plan will be to take her tomorrow for exploration, drainage of forearm abscess. Continue with limb elevation, IV antibiotics and range of motion exercises. Hand surgery will follow. Keep the patient n.p.o. after breakfast 07:00 a.m. for a planned surgery tomorrow evening. Yenny Zhong MD SE/KAREEN /5:20 PM /7:38 PM RUY
[2016-06-04 20:00] VITALS: BP 100/50; PULSE 70; RESP 16; TEMP 98.1; O2SAT 99
[2016-06-04] MEDS: KETOROLAC TROMETHAMINE 30 MG/ML (IVP) VIAL IVP PRN (20:34)
[2016-06-04] MEDS: SODIUM CHLORIDE 0.9% FLUSH 5 ML FLUSH IV SCH (20:34)
[2016-06-05] VITALS (9 sets, daily range): BP systolic 95–110; BP diastolic 46–57; PULSE 56–74; RESP 16–18; TEMP 97.6–98.6; O2SAT 94–99
[2016-06-05] MEDS: VANCOMYCIN INJ 750 MG in SODIUM CHLOR 0.9% 250 ML INJ 250 ML IV SCH ×2 (03:27→16:30)
[2016-06-05] MEDS: KETOROLAC TROMETHAMINE 30 MG/ML (IVP) VIAL IVP PRN ×4 (03:33→21:43)
[2016-06-05 05:46] LABS: AUTOMATED NEUTROPHIL # 3.1 TH/MM3 (1.8-7.7); BASOPHIL # 0.1 TH/MM3 (0-0.2); BASOPHIL % 1.1 % (0.0-2.0); EOSINOPHIL # 0.1 TH/MM3 (0-0.4); EOSINOPHIL % 1.8 % (0.0-4.0); HEMATOCRIT 39.2 % (35.0-46.0); HEMO FLAGS DIFF FINAL; LYMPH % 44.4 % (9.0-44.0); LYMPHOCYTE # 3.1 TH/MM3 (1.0-4.8); MEAN CELL VOLUME 92.1 FL (80.0-100.0); MEAN CORPUSCULAR HGB CONC 33.7 % (32.0-36.0); MONO % 8.8 % (0.0-8.0); NEUT % 43.9 % (16.0-70.0); PLATELET COUNT 175 TH/MM3 (150-450); RED BLOOD COUNT 4.25 MIL/MM3 (4.00-5.30); WHITE BLOOD COUNT 7.1 TH/MM3 (4.0-11.0)
[2016-06-05 06:15] LABS: BICARBONATE 27.5 MEQ/L (21.0-32.0); POTASSIUM 4.6 MEQ/L (3.5-5.1)
[2016-06-05] MEDS: SODIUM CHLORIDE 0.9% FLUSH 5 ML FLUSH IV SCH ×2 (10:08→21:04)
--- NOTE | 2016-06-05 11:52 | HHI.PR ---
Subjective Remarks Patient seen in follow-up for right forearm abscess. She reports that she is feeling okay. Pain is controlled. No fevers. Plan for debridement today per hand surgery. Objective Vitals Vital Signs Date Time Temp Pulse Resp B/P Pulse Ox O2 Delivery O2 Flow Rate FiO2 06/05/16 07:42 98.2 59 18 102/57 97 06/05/16 04:00 98.0 58 16 95/47 99 06/05/16 02:24 65 06/05/16 00:00 97.9 60 16 96/46 98 06/04/16 20:00 98.1 70 16 100/50 99 I/O 06/04/16 06/04/16 06/04/16 06/05/16 06/05/16 06/05/16 07:00 15:00 23:00 07:00 15:00 23:00 Intake Total 360 ml 1000 ml Balance 360 ml 1000 ml Intake Oral 360 ml 720 ml IV Total 280 ml # Voids 4 # Bowel Movements 0 Result Diagram: 06/05/16 0533 06/05/16 0533 Imaging Last Impressions Upper Extremity Ultrasound 06/04/16 0000 Signed Impressions: Service Date/Time: Saturday, June 04, 2016 12:16 - CONCLUSION: 2.3 cm somewhat ovoid complex area probable fluid collection with vascularity anterior right wrist. Abscess suspect or hematoma Kirill Llamas MD Objective Remarks GENERAL: This is a well-nourished, well-developed patient, in no apparent distress. SKIN: There is a 2 cm area status post I&D with surrounding erythema and induration on the right anterior forearm. On the medial side there is a healing site from previous abscess. CARDIOVASCULAR: Normal rate and regular rhythm without murmurs, gallops, or rubs. RESPIRATORY: Good respiratory efforts. Breath sounds equal and clear to auscultation bilaterally. GASTROINTESTINAL: Abdomen soft, non-tender, non-distended. Normal active bowel sounds MUSCULOSKELETAL: Extremities without cyanosis, or edema. Patient is able to make a fist and move right hand without any problems. She reports some tingling in the right thumb. NEURO: Alert & Oriented x4 to person, place, time, situation. Moves all ext x4 PSYCH: Appropriate mood and affect. A/P Problem List: (1) Abscess of forearm, right ICD Code: L02.413 Status: Acute Assessment and Plan 40-year-old female with: Cellulitis and abscess of the right wrist: Patient is an IV drug user. Previously left the hospital AMA. - Appreciate an surgery following. Plan for debridement today per hand surgery. Pain control with Lortab and ketorolac as needed. - Keep hand elevated. Continue broad-spectrum IV antibiotics with Rocephin and vancomycin - Follow wound and blood cultures. IV drug user and noncompliance: Left hospital AMA multiple times. The patient was counseled. She indicated that she will stay for treatment this time. She has no real plan regarding IV drug use cessation. hepatitis C- f/u as outpatient. GI prophylaxis: Stool softener PRN constipation. DVT PPx: SCDs. Re Keene MD Jun 05, 2016 11:52
[2016-06-05] MEDS ORDERED: PHENYLEPH/NS 1000 MCG/10 ML SYR IV ONE (12:00)
[2016-06-05] MEDS ORDERED: ONDANSETRON HCL 4 MG/2 ML VIAL IV PUSH ONE (12:00)
[2016-06-05] MEDS ORDERED: PROPOFOL 200 MG/20 ML AMP IV ONE (12:00)
[2016-06-05] MEDS: cefTRIAXone INJ 1,000 MG in SODIUM CHLORIDE 0.9% INJ 100 ML IV SCH (16:31)
[2016-06-05] MEDS ORDERED: BACITRACIN TOP OINT 15 GM TUBE ONE (18:02)
[2016-06-05] MEDS ORDERED: NEOMYCIN/POLYMYXIN 1 ML G.U. IRRIGANT XX ONE (18:37)
--- NOTE | 2016-06-05 19:13 | PD.OP ---
Operative Report Preoperative Diagnosis: (1) Abscess of forearm, right Postoperative Diagnosis: (1) Abscess of forearm, right Procedure: incision and drainage/excisional debridement right forearm abscess Anesthesia: general Surgeon: Denilson Gregory Bar Roller(s): kristina Operation and Findings: abscess cavity with necrotic material surrounding induration right volar forearm Denilson Gregory MD Jun 05, 2016 19:13
[2016-06-05] MEDS ORDERED: RESP: ALBUTEROL 2.5 MG/3 ML NEB (SCH) ONE (19:37)
[2016-06-05] MEDS ORDERED: DO NOT ADM ANY ANTICOAGULANT DRUGS XX PRN (19:45)
[2016-06-05] MEDS ORDERED: MORPHINE SULFATE 4 MG/ML INJ ONE (20:08)
[2016-06-06] VITALS: BP 114/54; PULSE 75; RESP 16; TEMP 98.5; O2SAT 96
[2016-06-06] MEDS: ACETAMINOPHEN/HYDROcodone 325 MG/5 MG TAB PO PRN ×2 (01:37→08:03)
[2016-06-06] MEDS ORDERED: PHARMACY ORDERED LAB XX ONE (02:45)
[2016-06-06] MEDS: VANCOMYCIN INJ 750 MG in SODIUM CHLOR 0.9% 250 ML INJ 250 ML IV SCH (04:09)
[2016-06-06 08:00] VITALS: BP 100/50; PULSE 78; PULSE 88; RESP 18; TEMP 98.6; O2SAT 96
[2016-06-06] MEDS: SODIUM CHLORIDE 0.9% FLUSH 5 ML FLUSH IV SCH (08:03)
[2016-06-06 12:00] VITALS: BP 97/50; PULSE 65; RESP 18; TEMP 98.7; O2SAT 94
[2016-06-06] MEDS: KETOROLAC TROMETHAMINE 30 MG/ML (IVP) VIAL IVP PRN (12:50)
--- NOTE | 2016-06-06 13:29 | HHI.PR ---
Objective Vitals Vital Signs Date Time Temp Pulse Resp B/P Pulse Ox O2 Delivery O2 Flow Rate FiO2 06/06/16 12:00 98.7 65 18 97/50 94 06/06/16 08:00 78 06/06/16 08:00 98.6 88 18 100/50 96 06/06/16 00:00 98.5 75 16 114/54 96 06/05/16 20:45 97.8 65 17 121/71 95 Nasal Cannula 3 06/05/16 20:00 65 06/05/16 20:00 97.6 67 18 107/57 94 06/05/16 20:00 72 15 121/73 95 Nasal Cannula 3 06/05/16 19:45 70 16 122/73 95 Nasal Cannula 3 06/05/16 19:39 95 Simple Mask 8.00 06/05/16 19:30 82 15 120/69 96 Aerosol Mask 8 06/05/16 19:25 98.1 85 17 117/67 96 Simple Mask 6 06/05/16 16:00 98.2 57 18 107/53 97 I/O 06/05/16 06/05/16 06/05/16 06/06/16 06/06/16 06/06/16 07:00 15:00 23:00 07:00 15:00 23:00 Intake Total 1360 ml 1380 ml 300 ml Output Total 50 ml Balance 1360 ml 1330 ml 300 ml Intake Oral 1080 ml 480 ml IV Total 280 ml 300 ml Autotransfusion 0 ml Other 900 ml Output Urine Total 0 ml Estimated Blood Loss 50 ml # Voids 5 2 2 # Bowel Movements 0 0 0 Result Diagram: 06/05/16 0533 06/05/16 0533 Objective Remarks GENERAL: This is a well-nourished, well-developed patient, in no apparent distress. SKIN: There is a 2 cm area status post I&D with surrounding erythema and induration on the right anterior forearm. On the medial side there is a healing site from previous abscess. CARDIOVASCULAR: Normal rate and regular rhythm without murmurs, gallops, or rubs. RESPIRATORY: Good respiratory efforts. Breath sounds equal and clear to auscultation bilaterally. GASTROINTESTINAL: Abdomen soft, non-tender, non-distended. Normal active bowel sounds MUSCULOSKELETAL: Extremities without cyanosis, or edema. Patient is able to make a fist and move right hand without any problems. She reports some tingling in the right thumb. NEURO: Alert & Oriented x4 to person, place, time, situation. Moves all ext x4 PSYCH: Appropriate mood and affect. A/P Problem List: (1) Abscess of forearm, right ICD Code: L02.413 Status: Acute Assessment and Plan 40-year-old female with: Cellulitis and abscess of the right wrist: Patient is an IV drug user. Previously left the hospital AMA. - Appreciate an surgery following. Plan for debridement today per hand surgery. Pain control with Lortab and ketorolac as needed. - Keep hand elevated. Continue broad-spectrum IV antibiotics with Rocephin and vancomycin - Follow wound and blood cultures. IV drug user and noncompliance: Left hospital AMA multiple times. The patient was counseled. She indicated that she will stay for treatment this time. She has no real plan regarding IV drug use cessation. hepatitis C- f/u as outpatient. GI prophylaxis: Stool softener PRN constipation. DVT PPx: SCDs. Re Keene MD Jun 06, 2016 13:29
[2016-06-06] MEDS ORDERED: CEFD300C PO (14:15)
--- NOTE | 2016-06-06 14:16 | HHI.DCPOC ---
Discharge Care Plan Diagnosis: (1) Abscess of forearm, right Goals to Promote Your Health * To prevent worsening of your condition and complications * To maintain your health at the optimal level Directions to Meet Your Goals Take your medications as prescribed Follow your dietary instruction Follow activity as directed Keep your appointments as scheduled Take your immunizations and boosters as scheduled If your symptoms worsen call your PCP, if no PCP go to Urgent Care Center or Emergency Room Smoking is Dangerous to Your Health. Avoid second hand smoke Call the 24-hour hour crisis hotline for domestic abuse at Re Keene MD Jun 06, 2016 14:16
--- NOTE | 2016-06-06 14:16 | HHI.DS ---
Discharge Summary Admission Date Jun 04, 2016 at 14:49 Discharge Date: Jun 06, 2016 Admitting Diagnosis abscess, flexor tenosynovitis (1) Abscess of forearm, right ICD Code: L02.413 Diagnosis: Principal Procedures Right forearm abscess incision and debridement by Dr. Zhang Brief History - From Admission patient is a 40 y/o female with history of IVDA, the last cocaine injection was eight days ago. she started to have infection of the right wrist a few days after the injection. she was admitted to this hospital about a week ago but decided to sign out against medical advice. she says that the swelling got worse and she decided to come back to ER. she denies any fever but had some chills. the pain at the site was fairly controlled at the time of my evaluation. CBC/BMP: 06/05/16 0533 06/05/16 0533 Significant Findings Laboratory Tests Test 06/04/16 06/05/16 12:09 05:33 Monocytes (%) (Auto) 8.1 % (0.0-8.0) 8.8 % (0.0-8.0) Estimat Glomerular Filtration 81 ML/MIN (>89) 79 ML/MIN (>89) Rate Lymphocytes (%) (Auto) 44.4 % (9.0-44.0) Chloride Level 109 MEQ/L (98-107) Calcium Level 8.2 MG/DL (8.5-10.1) Imaging Last Impressions Upper Extremity Ultrasound 06/04/16 0000 Signed Impressions: Service Date/Time: Saturday, June 04, 2016 12:16 - CONCLUSION: 2.3 cm somewhat ovoid complex area probable fluid collection with vascularity anterior right wrist. Abscess suspect or hematoma Kirill Llamas MD PE at Discharge GENERAL: This is a well-nourished, well-developed patient, in no apparent distress. SKIN: There is a 2 cm area status post I&D with surrounding erythema and induration on the right anterior forearm. On the medial side there is a healing site from previous abscess. CARDIOVASCULAR: Normal rate and regular rhythm without murmurs, gallops, or rubs. RESPIRATORY: Good respiratory efforts. Breath sounds equal and clear to auscultation bilaterally. GASTROINTESTINAL: Abdomen soft, non-tender, non-distended. Normal active bowel sounds MUSCULOSKELETAL: Extremities without cyanosis, or edema. Patient is able to make a fist and move right hand without any problems. She reports some tingling in the right thumb. NEURO: Alert & Oriented x4 to person, place, time, situation. Moves all ext x4 PSYCH: Appropriate mood and affect. Pt update on day of discharge Patient reports that she is feeling 100% better. She is requesting to go home. Hospital Course 40-year-old female IV drug user admitted for cellulitis and abscess of the right wrist. The patient underwent incision and debridement with hand surgery. She was initially started on broad-spectrum IV antibiotics with Rocephin and vancomycin. She previously left the hospital AMA for the same issue. All cultures are showing normal phallus prior influenza, likely all adelso. The nurses discuss with hand surgery on the day of discharge who agreed the patient can go home on oral antibiotics. She was thoroughly counseled on the need to stop using IV drugs. Her blood cultures were negative to date. Patient also with known hepatitis C. She is advised to follow up outpatient for treatment. Patient is discharged in stable condition to continue treatment with oral antibiotics. She is to follow with hand surgery outpatient. Pt Condition on Discharge: Good Discharge Disposition: Discharge Home Discharge Time: <= 30 minutes Discharge Instructions DIET: Follow Instructions for: As Tolerated, No Restrictions Activities you can perform: Regular-No Restrictions Follow up Referrals: Hand Surgery New Medications: Cefdinir (Cefdinir) 300 Mg Cap 300 MG PO BID Infection #14 Ref 0 CAP Re Keene MD Jun 06, 2016 14:16
[2016-06-06] MEDS ORDERED: VANCOMYCIN INJ 1,250 MG in SODIUM CHLOR 0.9% 250 ML INJ 250 ML IV SCH (16:00)
[2016-06-08] MEDS ORDERED: PHARMACY ORDERED LAB XX ONE (03:45)
--- NOTE | 2016-06-11 08:00 | MP ---
cc: YENNY ZHONG MD DATE OF SURGERY June 05, 2016 PREOPERATIVE DIAGNOSIS Abscess right forearm. POSTOPERATIVE DIAGNOSIS Abscess right forearm. PROCEDURE Incision and drainage, excisional debridement right forearm abscess. SURGEON Dr. Zhong ANESTHESIA General. ESTIMATED BLOOD LOSS Minimal. TOURNIQUET TIME 12 minutes at 250 mmHg. SPECIMEN Material was sent for culture and sensitivity. CONDITION To PACU stable. INDICATIONS The patient is a 40-year-old female with history of IV drug abuse, presented to the ED with complaints of pain and swelling over the right volar aspect of the forearm. The patient underwent incision and drainage of the abscess over the volar aspect of the forearm. She complained of persistent pain and swelling over the region. She had an ultrasound which showed an abscess cavity over the volar forearm in the subcutaneous location. Because of the persistent symptoms, she was consented for incision and drainage of right forearm abscess. The patient was explained risks and benefits of the procedure. OPERATIVE PROCEDURE The patient was brought to the operating room. Under general anesthesia the right upper extremity was thoroughly prepped and draped. After limb elevation, the tourniquet was inflated to 250 mmHg. The previously placed transverse incision over the volar distal aspect of forearm was extended distally in a curvilinear fashion. The abscess cavity was exposed. Necrotic tissue was debrided by excisional debridement. The pockets were broken with blunt dissection. She also had another incision just proximal and ulnar to the abscess cavity which was incised and drained by the ER about a week ago. This was opened up and excisional debridement of the cavity was carried out. Thorough wash was given with normal saline mixed with hydrogen peroxide. This was then followed by normal saline mixed with irrigant. The tourniquet was deflated. Total tourniquet time was 12 minutes. She had good distal circulation on release of the tourniquet. Packing of the wounds were carried out with 1/4-inch Iodoform packing material. The skin incision was loosely approximated using 4-0 nylon in a horizontal mattress interrupted fashion. Bulky hand dressing was applied which was held in place by Sof-Rol and bias hand wrap. She was recovered and sent to Recovery in stable condition. The plan will be to keep the limb elevated, continue with IV antibiotics and change the packing tomorrow. MD OPHELIA Cornell /7:17 PM /7:47 AM MTDHumble
--- NOTE | 2016-06-14 11:33 | PQ ---
Physician Query Response Document PATIENT: BASSEM MONDRAGON : 1975 ADMIT DATE: 06/04/2016 2:49 PM DISCH DATE: 06/06/2016 2:25 PM RESPONDING PROVIDER #: ariel QUERY TEXT: Debridement Type Based on your medical judgment, can you further clarify the specific structures debrided such as: --Skin --Subcutaneous tissue --Fascia --Muscle --Other Specify If you have any additional questions/comments and/or concerns, please do not hesitate to reach out to the CDI/Coding Hotline, Ext. [phone]. The patient's Clinical Indicators include: Operative reporf of 06/05/16 documents: The previously placed transverse incision over the volar dist al aspect of forearm was extended distally in a curvilinear fashion. The abscess cavity was exposed. Necrotic tissue was debrided by excisional debridement. Query created by: Ratna Boudreaux on 06/12/2016 5:06 PM RESPONSE TEXT: Skin, subcutaneous tissue and fascia Electronically signed by: Denilson Gregory MD 06/14/2016 11:29 AM
== END 2016-06-06 14:25 | disposition home or self-care (01) | DRG 572 ==
LOC: NEPB 11:12 → NEDA 14:49 → N04B 19:22
PROVIDERS: ADMIT Family Medicine; ATTEND Family Medicine
PROC: 0JBG0ZZ Excision of Right Lower Arm Subcutaneous Tissue and Fascia, Open Approach (ICD-10-PCS; principal; 2016-06-05 18:19)
DX: L02.413 Cutaneous abscess of right upper limb (principal); B19.20 Unspecified viral hepatitis C without hepatic coma; F19.10 Other psychoactive substance abuse, uncomplicated; F17.210 Nicotine dependence, cigarettes, uncomplicated
CPT/HCPCS: 76882; 80048; 80202; 83605; 85025; 87040; 87070; 87077; 87185; 87205; 94664; 96372; J0696; J1885; J2270; J2370; J2405; J3010; J3370; J7050; J7613

== ENCOUNTER 2016-08-14 04:47 | Emergency (ER) | payer SELFPAY ==
[~2016-08-14] VITALS: Ht 160 cm; Wt 46.1 kg
[~2016-08-14 04:47] MED LIST changes: +CEFD300C PO; -CIPR-9 PO; -EXTR500C PO
[2016-08-14 04:48] VITALS: BP 111/57; PULSE 78; RESP 16; TEMP 97.5; O2SAT 100
[2016-08-14] MEDS ORDERED: SODIUM CHLOR 0.9% 1000 ML INJ 1,000 ML IV ONE (06:00)
--- NOTE | 2016-08-14 06:20 | PD ---
HPI Chief Complaint: Psychiatric Symptoms Time Seen by Provider: 05:36 Travel History International Travel<30 days: No Contact w/Intl Traveler<30days: No Traveled to known affect area: No History of Present Illness HPI Patient is a 40-year-old female history of cocaine abuse, who comes in saying she wants to . She says she "just can't take it anymore." She says she has had a sore throat and a cough for several days. She denies fever or chills. She says she has body aches all over. She does admit to using cocaine tonight. Her boyfriend is also here with the same complaint. She says she has history of depression and psychiatric issues, but has not been taking any medication for a while. PFSH Past Medical History Arthritis: Yes Autoimmune Disease: No Anxiety: Yes Depression: Yes Cancer: Yes (Dysplasia) Cardiovascular Problems: No Chemotherapy: No COPD: Yes (says told her she has it ) Cerebrovascular Accident: No Diabetes: No Diminished Hearing: No Endocrine: No Genitourinary: No Hepatitis: Yes (Hep C ) Immune Disorder: No Musculoskeletal: Yes Neurologic: No Psychiatric: Yes (BIPOLAR, SCHIZO) Reproductive: Yes (endometriosis) Respiratory: No Immunizations Current: Yes Migraines: No Radiation Therapy: No Seizures: No Tetanus Vaccination: < 5 Years Influenza Vaccination: No PNEUMOCCOCAL Vaccine (Year): 2 ?: Not LMP: NOW : 4 Para: 1 Miscarriage: 2 : 1 Ectopic : No Ovarian Cysts: No Tubal Ligation: Yes (LEFT ONLY) Past Surgical History Appendectomy: Yes Gynecologic Surgery: Yes (laproscopy) Hysterectomy: No Other Surgery: Yes (Left fallopian tube removed age 21, right sx on tendon due to drug use) Social History Alcohol Use: No Tobacco Use: Yes (1 PPD) Substance Use: Yes (cocaine today) Allergies-Medications (Allergen,Severity, Reaction): Coded Allergies: Penicillin (Verified Allergy, Severe, GI UPSET, 08/14/16) Sulfa (Verified Allergy, Intermediate, GI , 08/14/16) Betadine (Verified Allergy, Mild, RASH, 08/14/16) Barium Sulfate (Verified Allergy, Unknown, PT GETS A RASH WITH BETADINE, ) Reported Meds & Prescriptions Reported Meds & Active Scripts Active No Active Prescriptions or Reported Medications Review of Systems Except as stated in HPI: all other systems reviewed are Neg General / Constitutional: No: Fever, Chills HENT: Positive: Sore Throat, Congestion Cardiovascular: No: Chest Pain or Discomfort Respiratory: Positive: Cough, No: Shortness of Breath Gastrointestinal: No: Nausea, Vomiting Musculoskeletal: Positive: Myalgias Skin: No Rash, No Change in Pigmentation Physical Exam Narrative GENERAL: Awake and alert, in no acute distress. SKIN: Focused skin assessment warm/dry. HEAD: Atraumatic. Normocephalic. EYES: Pupils equal and round. No scleral icterus. ENT: No tonsillar swelling or exudates. Mucous membranes pink and moist. NECK: Trachea midline. No JVD. CARDIOVASCULAR: Regular rate and rhythm. No murmur appreciated. RESPIRATORY: No accessory muscle use. Clear to auscultation. Breath sounds equal bilaterally. GASTROINTESTINAL: Abdomen soft, non-tender, nondistended. MUSCULOSKELETAL: No obvious deformities. No clubbing. No cyanosis. No edema. NEUROLOGICAL: Awake and alert. No obvious cranial nerve deficits. Motor grossly within normal limits. Normal speech. PSYCHIATRIC: Appropriate mood and affect; insight and judgment normal. Data Data Last Documented VS Vital Signs Date Time Temp Pulse Resp B/P Pulse Ox O2 Delivery O2 Flow Rate FiO2 08/14/16 04:48 97.5 78 16 111/57 100 Room Air Orders Complete Blood Count With Diff (08/14/16 05:56) Comprehensive Metabolic Panel (08/14/16 05:56) Urinalysis - C+S If Indicated (08/14/16 05:56) Ed Urine Pregnancytest Poc (08/14/16 05:56) Psych Screen (08/14/16 05:56) Drug Screen, Random Urine (08/14/16 05:56) Alcohol (Ethanol) (08/14/16 05:56) Salicylates (Aspirin) (08/14/16 05:56) Tylenol (Acetaminophen) (08/14/16 05:56) Chest, Pa & Lat (08/14/16 ) Sodium Chlor 0.9% 1000 Ml Inj (Ns 1000 M (08/14/16 06:00) Diet Regular Basic (08/14/16 Breakfast) Labs Laboratory Tests Test 08/14/16 08/14/16 08/14/16 06:14 06:25 07:00 Sodium Level 139 MEQ/L Potassium Level 4.3 MEQ/L Chloride Level 106 MEQ/L Carbon Dioxide Level 25.5 MEQ/L Anion Gap 8 MEQ/L Blood Urea Nitrogen 13 MG/DL Creatinine 0.77 MG/DL Estimat Glomerular Filtration 84 ML/MIN Rate Random Glucose 80 MG/DL Calcium Level 8.4 MG/DL Total Bilirubin 0.3 MG/DL Aspartate Amino Transf 49 U/L (AST/SGOT) Alanine Aminotransferase 59 U/L (ALT/SGPT) Alkaline Phosphatase 88 U/L Total Protein 7.3 GM/DL Albumin 3.5 GM/DL Acetaminophen Level LESS THAN 2.0 MCG/ML Ethyl Alcohol Level LESS THAN 3 MG/DL Salicylates Level 3.9 MG/DL White Blood Count 8.4 TH/MM3 Red Blood Count 4.53 MIL/MM3 Hemoglobin 14.0 GM/DL Hematocrit 41.2 % Mean Corpuscular Volume 91.0 FL Mean Corpuscular Hemoglobin 30.9 PG Mean Corpuscular Hemoglobin 33.9 % Concent Red Cell Distribution Width 14.4 % Platelet Count 221 TH/MM3 Mean Platelet Volume 10.3 FL Neutrophils (%) (Auto) 54.3 % Lymphocytes (%) (Auto) 33.4 % Monocytes (%) (Auto) 8.7 % Eosinophils (%) (Auto) 2.4 % Basophils (%) (Auto) 1.2 % Neutrophils # (Auto) 4.5 TH/MM3 Lymphocytes # (Auto) 2.8 TH/MM3 Monocytes # (Auto) 0.7 TH/MM3 Eosinophils # (Auto) 0.2 TH/MM3 Basophils # (Auto) 0.1 TH/MM3 CBC Comment DIFF FINAL Differential Comment MDM Medical Decision Making Medical Screen Exam Complete: Yes Emergency Medical Condition: Yes Medical Record Reviewed: Yes Differential Diagnosis Psychosis versus drug intoxication versus URI versus depression Narrative Course Patient is a 32-year-old female comes in because she says she just cannot take it anymore and wants to . She says she has a plan to take a lot of heroin, but does not think this will kill her. Exam shows no acute abnormalities. Labs sent. Patient given IV fluids. Patient will be medically cleared for psychiatric evaluation. She is voluntary at this point. Diagnosis Primary Impression: Depression Qualified Code: F32.9 - Depression, unspecified depression type Scripts No Active Prescriptions or Reported Meds Condition: Stable Naima Paula MD Aug 14, 2016 06:20
--- NOTE | 2016-08-14 06:26 | RADRPT ---
EXAM DATE/TIME: 08/14/2016 06:21 [facility] COMPARISON: No previous studies available for comparison. INDICATIONS : Cough. MEDICAL HISTORY : Chronic obstructive pulmonary disease. Arthritis. Hepatitis C. Bipolar disorder, IV drug use. SURGICAL HISTORY : Tubal ligation. Appendectomy. ENCOUNTER: Initial ACUITY: 1 day PAIN SCORE: 0/10 LOCATION: Bilateral chest FINDINGS: PA and lateral views of the chest demonstrate the lungs to be symmetrically aerated without evidence of mass, infiltrate or effusion. The lungs are hyperinflated bilaterally. The cardiomediastinal conto urs are unremarkable. Osseous structures are intact. CONCLUSION: Hyperinflation suggesting COPD. No acute infiltrate or effusion. Miquel Carpenter Jr., MD on August 14, 2016 at 6:24 Board Certified Radiologist. This report was verified electronically.
[2016-08-14 06:47] LABS: ACETAMINOPHEN LESS THAN 2.0 MCG/ML (10.0-30.0); ALKALINE PHOSPHATASE 88 U/L (45-117); TOTAL BILIRUBIN ADULT 0.3 MG/DL (0.2-1.0)
[2016-08-14 06:55] LABS: ALT (GPT) 59 U/L (10-53); ANION GAP 8 MEQ/L (5-15); AST (GOT) 49 U/L (15-37); BICARBONATE 25.5 MEQ/L (21.0-32.0); BLOOD UREA NITROGEN 13 MG/DL (7-18); CHLORIDE 106 MEQ/L (98-107); GLOMERULAR FILTRATION RATE 84 ML/MIN (>89); SODIUM (NA) 139 MEQ/L (136-145)
[2016-08-14 06:58] LABS: POTASSIUM 4.3 MEQ/L (3.5-5.1)
[2016-08-14 07:20] LABS: AUTOMATED NEUTROPHIL # 4.5 TH/MM3 (1.8-7.7); BASOPHIL # 0.1 TH/MM3 (0-0.2); BASOPHIL % 1.2 % (0.0-2.0); EOSINOPHIL # 0.2 TH/MM3 (0-0.4); EOSINOPHIL % 2.4 % (0.0-4.0); HEMATOCRIT 41.2 % (35.0-46.0); HEMO FLAGS DIFF FINAL; LYMPH % 33.4 % (9.0-44.0); LYMPHOCYTE # 2.8 TH/MM3 (1.0-4.8); MEAN CORPUSCULAR HEMOGLOBIN 30.9 PG (27.0-34.0); MEAN CORPUSCULAR HGB CONC 33.9 % (32.0-36.0); MONO % 8.7 % (0.0-8.0); NEUT % 54.3 % (16.0-70.0); PLATELET COUNT 221 TH/MM3 (150-450); RED BLOOD COUNT 4.53 MIL/MM3 (4.00-5.30); RED CELL DISTRIBUTION WIDTH 14.4 % (11.6-17.2); WHITE BLOOD COUNT 8.4 TH/MM3 (4.0-11.0)
--- NOTE | 2016-08-14 10:33 | PD ---
History of Present Illness Chief Complaint: Psychiatric Symptoms Time Seen by Provider: 10:00 Travel History International Travel<30 Days: No Contact w/Intl Traveler<30days: No Known affected area: No Legal Status Legal Status: Voluntary History of Present Illness: This is a 40-year-old female who used crack cocaine last evening and is now claiming if this physician does not admit her that she will go out and kill herself. Apparently she made the same threat last night. She has been intermittently clean for the past several years but has also been treated at [facility] for cocaine abuse in the past. She came in with her boyfriend last night and he wanted assistance with his cocaine abuse. He was sent to [facility] and she is complaining that they have been split up. When this physician recommended she go to [facility] as well for cocaine abuse, she became irate and threatening to kill herself if she was not admitted. This physician is unable to determine if there is any biological basis to her complaints of depression but she does have a substance abuse problem which likely contributes to her mood disorder. Additionally, it is counter therapeutic to allow the patient with a substance abuse disorder to direct her psychiatric care by making threats. Therefore this physician feels it remains appropriate to refer her to [facility] for drug abuse treatment. The patient may continue to act out and actually harm herself to demonstrate her seriousness. However this cannot be prevented in the long run and the patient is entirely competent to make decisions regarding her self. PFSH Past Medical History Arthritis: Yes Autoimmune Disease: No Anxiety: Yes Depression: Yes Cancer: Yes (Dysplasia) Cardiovascular Problems: No Chemotherapy: No COPD: Yes (says told her she has it ) Cerebrovascular Accident: No Diabetes: No Diminished Hearing: No Endocrine: No Genitourinary: No Hepatitis: Yes (Hep C ) Immune Disorder: No Musculoskeletal: Yes Neurologic: No Psychiatric: Yes (BIPOLAR, SCHIZO) Reproductive: Yes (endometriosis) Respiratory: No Immunizations Current: Yes Migraines: No Radiation Therapy: No Seizures: No Tetanus Vaccination: < 5 Years Influenza Vaccination: No PNEUMOCCOCAL Vaccine (Year): 2 ?: Not LMP: NOW : 4 Para: 1 Miscarriage: 2 : 1 Ectopic : No Ovarian Cysts: No Tubal Ligation: Yes (LEFT ONLY) Past Surgical History Appendectomy: Yes Gynecologic Surgery: Yes (laproscopy) Hysterectomy: No Other Surgery: Yes (Left fallopian tube removed age 21, right sx on tendon due to drug use) Psychiatric History Psychiatric History Hx Psychiatric Treatment: Treated for substance abuse in the past. Treated as an outpatient and for substance abuse in the past. History of Inpatient Treatment: No Guns or firearms in home: No Social History Hx Alcohol Use: No Hx Tobacco Use: Yes (1 PPD) Hx Substance Use: Yes (cocaine today) Hx of Substance Use Treatment: Yes Allergies-Medications (Allergen,Severity, Reaction): Coded Allergies: Penicillin (Verified Allergy, Severe, GI UPSET, 08/14/16) Sulfa (Verified Allergy, Intermediate, GI , 08/14/16) Betadine (Verified Allergy, Mild, RASH, 08/14/16) Barium Sulfate (Verified Allergy, Unknown, PT GETS A RASH WITH BETADINE, ) Reported Meds & Prescriptions Reported Meds & Active Scripts Active No Active Prescriptions or Reported Medications Review of Systems ROS Limitations: Clinical Condition Exam Exam Limitations: Clinical Condition Alert: Yes [place]: Person, Place, Date, Situation Mood: Oppositional Affect: Labile Speech: Clear, Logical Eye Contact: Normal Memory Intact: Immediate, Recent, Remote Delusions: No Suicidal: Ideation Insight/Judgement Adequate with the exception of substance abuse. MDM Medical Decision Making Medical Record Reviewed: Yes Assessment/Plan Patient is here voluntarily so no Braun act is needed to be limited. As stated above, the patient has obvious issues with cocaine abuse. She admits to this. This physician continues to feel it is counter therapeutic to admit the patient to inpatient psychiatry treatment when she has been using cocaine and is making threats to direct her care. It is understood that there are risks of the patient acting out in the near future but she remains competent to make decisions regarding her own well-being. This physician continues to feel her primary need is for substance abuse treatment at this time and this is the reason she was referred to [facility]. Orders Complete Blood Count With Diff (08/14/16 05:56) Comprehensive Metabolic Panel (08/14/16 05:56) Urinalysis - C+S If Indicated (08/14/16 05:56) Ed Urine Pregnancytest Poc (08/14/16 05:56) Psych Screen (08/14/16 05:56) Drug Screen, Random Urine (08/14/16 05:56) Alcohol (Ethanol) (08/14/16 05:56) Salicylates (Aspirin) (08/14/16 05:56) Tylenol (Acetaminophen) (08/14/16 05:56) Chest, Pa & Lat (08/14/16 ) Sodium Chlor 0.9% 1000 Ml Inj (Ns 1000 M (08/14/16 06:00) Diet Regular Basic (08/14/16 Breakfast) Results Vital Signs Date Time Temp Pulse Resp B/P Pulse Ox O2 Delivery O2 Flow Rate FiO2 08/14/16 04:48 97.5 78 16 111/57 100 Room Air Laboratory Tests Test 08/14/16 08/14/16 08/14/16 06:14 06:25 07:00 Sodium Level 139 Potassium Level 4.3 Chloride Level 106 Carbon Dioxide Level 25.5 Anion Gap 8 Blood Urea Nitrogen 13 Creatinine 0.77 Estimat Glomerular Filtration 84 Rate Random Glucose 80 Calcium Level 8.4 Total Bilirubin 0.3 Aspartate Amino Transf 49 (AST/SGOT) Alanine Aminotransferase 59 (ALT/SGPT) Alkaline Phosphatase 88 Total Protein 7.3 Albumin 3.5 Acetaminophen Level LESS THAN 2.0 Ethyl Alcohol Level LESS THAN 3 Salicylates Level 3.9 White Blood Count 8.4 Red Blood Count 4.53 Hemoglobin 14.0 Hematocrit 41.2 Mean Corpuscular Volume 91.0 Mean Corpuscular Hemoglobin 30.9 Mean Corpuscular Hemoglobin 33.9 Concent Red Cell Distribution Width 14.4 Platelet Count 221 Mean Platelet Volume 10.3 Neutrophils (%) (Auto) 54.3 Lymphocytes (%) (Auto) 33.4 Monocytes (%) (Auto) 8.7 Eosinophils (%) (Auto) 2.4 Basophils (%) (Auto) 1.2 Neutrophils # (Auto) 4.5 Lymphocytes # (Auto) 2.8 Monocytes # (Auto) 0.7 Eosinophils # (Auto) 0.2 Basophils # (Auto) 0.1 CBC Comment DIFF FINAL Differential Comment Diagnosis Primary Impression: Depression Prescriptions No Active Prescriptions or Reported Meds Condition: Stable Problem Qualifiers Primary Impression: Depression Qualified Code: F32.9 - Depression, unspecified depression type Michael Conti MD Aug 14, 2016 10:33
[2016-08-14 12:47] VITALS: BP 141/58; PULSE 68; RESP 16; TEMP 99; O2SAT 98
[2016-08-14 13:46] LABS: BACTERIA, URINE RARE /hpf; BLOOD, URINE MOD (NEG); GLUCOSE,URINE NEG (NEG); KETONE, URINE NEG (NEG); MUCUS URINE MANY /lpf (OCC); NITRITE,URINE NEG (NEG); SQUAMOUS EPITHELIAL CELL URINE 23 /hpf (0-5); URINE COLOR YELLOW (YELLW/STRAW)
[2016-08-14 13:47] LABS: COMMENT (UR) CULTURE INDICATED; CULTURE IF INDICATED CULTURE INDICATED
[2016-08-14 13:51] LABS: AMPHETAMINE, URINE NEG (NEG); BARBITURATES, URINE NEG (NEG); COCAINE, URINE POS (NEG)
[2016-08-14 17:00] VITALS: BP 103/54; PULSE 62; RESP 17; O2SAT 98
[2016-08-14 22:08] VITALS: BP 109/55; PULSE 59; RESP 18
[2016-08-15 02:11] VITALS: BP 109/53; PULSE 68; RESP 17; O2SAT 97
[2016-08-15 06:15] VITALS: BP 118/53; PULSE 62; RESP 17; O2SAT 97
[2016-08-15 11:10] VITALS: BP 109/63; PULSE 67; RESP 18
[2016-08-15 18:49] VITALS: BP 109/53; PULSE 68; RESP 20; TEMP 98.2; O2SAT 98
[2016-08-15 22:25] VITALS: BP 104/52; PULSE 60; RESP 18
[2016-08-16 01:51] VITALS: BP 104/49; PULSE 68; RESP 18; O2SAT 98
[2016-08-16 06:24] VITALS: BP 102/57; PULSE 79; RESP 18; O2SAT 97
== END 2016-08-16 10:38 | disposition home or self-care (01) ==
LOC: NEPE 04:47 → NEPJ 08-16 10:38
DX: F32.9 Major depressive disorder, single episode, unspecified (principal); F14.10 Cocaine abuse, uncomplicated; F17.200 Nicotine dependence, unspecified, uncomplicated; R05 Cough; J02.9 Acute pharyngitis, unspecified; N39.0 Urinary tract infection, site not specified; B96.89 Other specified bacterial agents as the cause of diseases classified elsewhere
CPT/HCPCS: 71020; 80053; 80307; 81001; 84703; 85025; 87086; 99284; J7030

== ENCOUNTER 2016-12-22 10:47 | Emergency (ER) | payer SELFPAY ==
[~2016-12-22] VITALS: Ht 157.5 cm; Wt 46.0 kg
[2016-12-22 10:49] VITALS: BP 108/51; PULSE 87; RESP 18; TEMP 98.5; O2SAT 97
[2016-12-22 12:21] VITALS: BP 114/59; PULSE 64; RESP 18; O2SAT 99
--- NOTE | 2016-12-22 12:29 | PD ---
HPI . wants her liver checked Chief Complaint: Medical Clearance Time Seen by Provider: 12:29 Travel History International Travel<30 days: No Contact w/Intl Traveler<30days: No Traveled to known affect area: No History of Present Illness HPI 41-year-old female with history of IV drug abuse here with complaints of just feeling ill. Patient tells me that she has a history of hepatitis C and has never been checked out. She tells me that she feels her liver is getting worse and she will have a general exam. She reports intermittent right sided abdominal pain that comes and goes. She also tells me that sometimes she does not urinate as much as she would like, but she's not been drinking fluids as she should. She denies any dysuria, vaginal discharge or abdominal pain at this time. She has no nausea or vomiting. She tells me she is truly here just because she wants to have her liver checked out. PFSH Past Medical History Arthritis: Yes Autoimmune Disease: No Anxiety: Yes Depression: Yes Cancer: Yes (Dysplasia) Cardiovascular Problems: No Chemotherapy: No COPD: Yes (says told her she has it ) Cerebrovascular Accident: No Diabetes: No Diminished Hearing: No Endocrine: No Genitourinary: No Hepatitis: Yes (Hep C ) Immune Disorder: No Musculoskeletal: Yes Neurologic: No Psychiatric: Yes (BIPOLAR, SCHIZO) Reproductive: Yes (endometriosis) Respiratory: No Immunizations Current: Yes Migraines: No Radiation Therapy: No Seizures: No PNEUMOCCOCAL Vaccine (Year): 2 ?: Not : 4 Para: 1 Miscarriage: 2 : 1 Ectopic : No Ovarian Cysts: No Tubal Ligation: Yes (LEFT ONLY) Past Surgical History Appendectomy: Yes Gynecologic Surgery: Yes (laproscopy) Hysterectomy: No Other Surgery: Yes (Left fallopian tube removed age 21, right sx on tendon due to drug use) Social History Alcohol Use: No Tobacco Use: Yes (1 PPD) Substance Use: Yes (DAILY CRACK COCAINE) Allergies-Medications (Allergen,Severity, Reaction): Coded Allergies: Iodine (Verified Allergy, Severe, 12/22/16) Latex (Verified Allergy, Severe, 12/22/16) Penicillin (Verified Allergy, Severe, GI UPSET, 12/22/16) Sulfa (Verified Allergy, Intermediate, GI , 12/22/16) Betadine (Verified Allergy, Mild, RASH, 12/22/16) Barium Sulfate (Verified Allergy, Unknown, PT GETS A RASH WITH BETADINE, ) Reported Meds & Prescriptions Reported Meds & Active Scripts Active Reported Celexa (Citalopram Hydrobromide) 10 Mg Tab 10 Mg PO DAILY Review of Systems General / Constitutional: No: Fever Eyes: No: Visual changes HENT: No: Headaches Cardiovascular: No: Chest Pain or Discomfort Respiratory: No: Shortness of Breath Gastrointestinal: No: Abdominal Pain Genitourinary: No: Dysuria Musculoskeletal: No: Pain Skin: No Rash Neurologic: No: Weakness Psychiatric: No: Depression Endocrine: No: Polydipsia Hematologic/Lymphatic: No: Easy Bruising Physical Exam Narrative GENERAL: AAO x 3, no acute distress, Well-nourished, well-developed patient. SKIN: Warm and dry. No visible rashes or bruising. No Jaundice HEAD: Normocephalic and atraumatic. EYES: No scleral icterus. No injection or drainage. ENT: No nasal drainage noted. Mucous membranes pink. Airway patent. Moist mucous membranes NECK: Supple, trachea midline. No JVD. CARDIOVASCULAR: Regular rate and rhythm without murmurs, gallops, or rubs. RESPIRATORY: diminished breath sounds without rales, rhonchi or wheezing, GASTROINTESTINAL: Abdomen soft, non-tender, nondistended. No Osman sign of McBurney's point tenderness EXTREMITIES: No cyanosis or edema. BACK: No obvious deformity. NEURO: CN II-12 intact, senior teller strength normal b/l, UE and LE 5/5, no focal deficits PSYCH: AAO x 3, normal affect. Data Data Last Documented VS Vital Signs Date Time Temp Pulse Resp B/P Pulse Ox O2 Delivery O2 Flow Rate FiO2 12/22/16 12:30 18 12/22/16 12:21 64 114/59 99 Room Air 12/22/16 10:49 98.5 Orders Cbc No Diff, Includes Plts (12/22/16 12:35) Comprehensive Metabolic Panel (12/22/16 12:35) Labs Laboratory Tests Test 12/22/16 13:22 White Blood Count 8.1 TH/MM3 Red Blood Count 4.91 MIL/MM3 Hemoglobin 15.5 GM/DL Hematocrit 46.3 % Mean Corpuscular Volume 94.2 FL Mean Corpuscular Hemoglobin 31.5 PG Mean Corpuscular Hemoglobin 33.4 % Concent Red Cell Distribution Width 13.5 % Platelet Count 189 TH/MM3 Mean Platelet Volume 11.4 FL Sodium Level 139 MEQ/L Potassium Level 3.7 MEQ/L Chloride Level 105 MEQ/L Carbon Dioxide Level 29.4 MEQ/L Anion Gap 5 MEQ/L Blood Urea Nitrogen 10 MG/DL Creatinine 0.79 MG/DL Estimat Glomerular Filtration 81 ML/MIN Rate Random Glucose 83 MG/DL Calcium Level 9.0 MG/DL Total Bilirubin 0.3 MG/DL Aspartate Amino Transf 56 U/L (AST/SGOT) Alanine Aminotransferase 114 U/L (ALT/SGPT) Alkaline Phosphatase 96 U/L Total Protein 8.3 GM/DL Albumin 3.9 GM/DL [facility] Medical Decision Making Medical Screen Exam Complete: Yes Emergency Medical Condition: Yes Medical Record Reviewed: Yes Differential Diagnosis Chronic hepatitis C, medical clearance, polysubstance abuse Narrative Course 41-year-old female here with very vague complaints. Examination was done in this fairly unremarkable. I will check a CBC and a CMP. I advised her that I will just check liver function test and ultimately she will need outpatient follow-up. She was in agreement with these recommendations. She then told the nurse that she wanted to see the doctor as I had an attitude with her about her cocaine usage. We have reviewed her labs. I discussed her case with my attending. Patient can f /u with a PCP. I have provided her the information on [facility]. Laboratory Tests Test 12/22/16 13:22 White Blood Count 8.1 TH/MM3 Red Blood Count 4.91 MIL/MM3 Hemoglobin 15.5 GM/DL Hematocrit 46.3 % Mean Corpuscular Volume 94.2 FL Mean Corpuscular Hemoglobin 31.5 PG Mean Corpuscular Hemoglobin 33.4 % Concent Red Cell Distribution Width 13.5 % Platelet Count 189 TH/MM3 Mean Platelet Volume 11.4 FL Sodium Level 139 MEQ/L Potassium Level 3.7 MEQ/L Chloride Level 105 MEQ/L Carbon Dioxide Level 29.4 MEQ/L Anion Gap 5 MEQ/L Blood Urea Nitrogen 10 MG/DL Creatinine 0.79 MG/DL Estimat Glomerular Filtration 81 ML/MIN Rate Random Glucose 83 MG/DL Calcium Level 9.0 MG/DL Total Bilirubin 0.3 MG/DL Aspartate Amino Transf 56 U/L (AST/SGOT) Alanine Aminotransferase 114 U/L (ALT/SGPT) Alkaline Phosphatase 96 U/L Total Protein 8.3 GM/DL Albumin 3.9 GM/DL Diagnosis Primary Impression: Chronic hepatitis C Qualified Code: B18.2 - Chronic hepatitis C without hepatic coma Referrals: [facility] Patient Instructions: General Instructions Additional Instructions: Please return to emergency department if your symptoms return or worsen. Follow up with your primary care provider. Disposition: 01 DISCHARGE HOME Condition: Stable Heather Ireland Dec 22, 2016 12:29
[2016-12-22] MEDS ORDERED: CELE10TA PO (13:35)
[2016-12-22 13:51] LABS: HEMATOCRIT 46.3 % (35.0-46.0); MEAN CELL VOLUME 94.2 FL (80.0-100.0); MEAN CORPUSCULAR HEMOGLOBIN 31.5 PG (27.0-34.0); MEAN CORPUSCULAR HGB CONC 33.4 % (32.0-36.0); PLATELET COUNT 189 TH/MM3 (150-450); RED BLOOD COUNT 4.91 MIL/MM3 (4.00-5.30); RED CELL DISTRIBUTION WIDTH 13.5 % (11.6-17.2); REVIEW FLAG FINAL; WHITE BLOOD COUNT 8.1 TH/MM3 (4.0-11.0)
[2016-12-22 14:03] LABS: ALT (GPT) 114 U/L (10-53)
[2016-12-22 14:05] LABS: ALKALINE PHOSPHATASE 96 U/L (45-117); TOTAL BILIRUBIN ADULT 0.3 MG/DL (0.2-1.0)
[2016-12-22 14:07] LABS: ANION GAP 5 MEQ/L (5-15); AST (GOT) 56 U/L (15-37); BICARBONATE 29.4 MEQ/L (21.0-32.0); BLOOD UREA NITROGEN 10 MG/DL (7-18); CHLORIDE 105 MEQ/L (98-107); GLOMERULAR FILTRATION RATE 81 ML/MIN (>89); POTASSIUM 3.7 MEQ/L (3.5-5.1); SODIUM (NA) 139 MEQ/L (136-145)
== END 2016-12-22 15:02 | disposition home or self-care (01) ==
LOC: NEPD 10:47
DX: B18.2 Chronic viral hepatitis C (principal); F17.200 Nicotine dependence, unspecified, uncomplicated; Z87.39 Personal history of other diseases of the musculoskeletal system and connective tissue; Z86.59 Personal history of other mental and behavioral disorders; Z87.09 Personal history of other diseases of the respiratory system; Z86.19 Personal history of other infectious and parasitic diseases; Z87.42 Personal history of other diseases of the female genital tract
CPT/HCPCS: 80053; 85027; 99283

== ENCOUNTER 2017-04-18 15:31 | Emergency (ER) | payer SELFPAY ==
[~2017-04-18] VITALS: Ht 157.5 cm; Wt 52.0 kg
[~2017-04-18 15:31] MED LIST changes: -CEFD300C PO; +CELE10TA PO
[2017-04-18 15:33] VITALS: BP 123/51; PULSE 80; RESP 16; TEMP 97.6; O2SAT 98
--- NOTE | 2017-04-18 16:14 | PD ---
HPI Chief Complaint: Cold / Flu Symptoms Time Seen by Provider: 16:12 Travel History International Travel<30 days: No Contact w/Intl Traveler<30days: No Traveled to known affect area: No History of Present Illness HPI 41-year-old female presents the emergency department with upper respiratory symptoms for the past week. She now has right ear pain, sore throat , and upper respiratory congestion. PFSH Past Medical History Arthritis: Yes Autoimmune Disease: No Anxiety: Yes Depression: Yes Cancer: Yes (Dysplasia) Cardiovascular Problems: No Chemotherapy: No COPD: Yes (says told her she has it ) Cerebrovascular Accident: No Diabetes: No Diminished Hearing: No Endocrine: No Genitourinary: No Hepatitis: Yes (Hep C ) Immune Disorder: No Musculoskeletal: Yes Neurologic: No Psychiatric: Yes (BIPOLAR, SCHIZO) Reproductive: Yes (endometriosis) Respiratory: No Immunizations Current: Yes Migraines: No Radiation Therapy: No Seizures: No PNEUMOCCOCAL Vaccine (Year): 2 ?: Not LMP: 3 WEEKS AGO : 4 Para: 1 Miscarriage: 2 : 1 Ectopic : No Ovarian Cysts: No Tubal Ligation: Yes (LEFT ONLY) Past Surgical History Appendectomy: Yes Gynecologic Surgery: Yes (laproscopy) Hysterectomy: No Other Surgery: Yes (Left fallopian tube removed age 21, right sx on tendon due to drug use) Social History Alcohol Use: No Tobacco Use: Yes (1 PPD) Substance Use: Yes (DAILY COCAINE) Allergies-Medications (Allergen,Severity, Reaction): Coded Allergies: iodine (Unverified Allergy, Severe, 04/18/17) latex (Unverified Allergy, Severe, 04/18/17) penicillin G (Unverified Allergy, Severe, GI UPSET, 04/18/17) potassium iodide (Unverified Allergy, Severe, 04/18/17) povidone-iodine (Unverified Allergy, Severe, 04/18/17) sodium iodide (Unverified Allergy, Severe, 04/18/17) sodium iodide (Unverified Allergy, Severe, 04/18/17) Sulfa (Sulfonamide Antibiotics) (Unverified Allergy, Intermediate, GI , ) barium sulfate (Unverified Allergy, Unknown, PT GETS A RASH WITH BETADINE , 04/18/17) Reported Meds & Prescriptions Reported Meds & Active Scripts Active Flonase Nasal [place] (Fluticasone Nasal [place]) 50 Mcg/Act [place] 100 Mcg EACH NARE BID Cipro (Ciprofloxacin HCl) 500 Mg Tab 500 Mg PO BID 10 Days Reported Celexa (Citalopram Hydrobromide) 10 Mg Tab 10 Mg PO DAILY Physical Exam Narrative GENERAL: Patient appears ill but not septic. SKIN: Warm and dry. All appear normal turgor. HEAD: Atraumatic. Normocephalic. EYES: Pupils equal and round. No scleral icterus. No injection or drainage. ENT: No nasal bleeding or discharge. Mucous membranes pink and moist. Patient has moderate diffuse pansinusitis. TMs are somewhat dull bilaterally without injection. Posterior pharynx is injected with increased cobblestoning and postnasal drip noted. NECK: Trachea midline. No JVD. CARDIOVASCULAR: Regular rate and rhythm. RESPIRATORY: No accessory muscle use. Coarse breath sounds throughout to auscultation. Breath sounds equal bilaterally. GASTROINTESTINAL: Abdomen soft, non-tender, nondistended. Hepatic and splenic margins not palpable. MUSCULOSKELETAL: Extremities without clubbing, cyanosis, or edema. No obvious deformities. NEUROLOGICAL: Awake and alert. No obvious cranial nerve deficits. Motor grossly within normal limits. Five out of 5 muscle strength in the arms and legs. Normal speech. PSYCHIATRIC: Appropriate mood and affect; insight and judgment normal. Data Data Last Documented VS Vital Signs Date Time Temp Pulse Resp B/P (MAP) Pulse Ox O2 Delivery O2 Flow Rate FiO2 04/18/17 16:15 16 99 Room Air 04/18/17 15:33 97.6 80 123/51 (75) MDM Medical Decision Making Medical Screen Exam Complete: Yes Emergency Medical Condition: Yes Differential Diagnosis Upper respiratory infection. Otitis media. Sinusitis. Pharyngitis. Narrative Course Patient was treated with ciprofloxacin 500 mg twice a day 10 days. Patient is allergic to penicillin and Bactrim. Patient also given Flonase nasal spray 2 sprays nostril daily. Patient taking [id number] ibuprofen and Tylenol as needed. Patient is encouraged to quit smoking as soon as possible. Patient is referred to [facility] for further primary care treatment. Diagnosis Primary Impression: Sinusitis, acute Qualified Codes: J01.40 - Acute pansinusitis, unspecified Referrals: [facility] Patient Instructions: General Instructions, How to Stop Smoking (DC), Sinusitis (ED) Additional Instructions: Patient was treated with ciprofloxacin 500 mg twice a day 10 days. Patient is allergic to penicillin and Bactrim. Patient also given Flonase nasal spray 2 sprays nostril daily. Patient taking [id number] ibuprofen and Tylenol as needed. Patient is encouraged to quit smoking as soon as possible. Patient is referred to [facility] for further primary care treatment. Med/Other Pt SpecificInfo: Prescription(s) given Scripts Fluticasone Nasal [place] (Flonase Nasal [place]) 50 Mcg/Act [place] 100 MCG EACH NARE BID for Allergies, #1 BOTTLE 0 Refills Prov: Myrtle Estevez DO 04/18/17 Ciprofloxacin (Cipro) 500 Mg Tab 500 MG PO BID for Infection for 10 Days, #20 TAB 0 Refills Prov: Myrtle Estevez DO 04/18/17 Disposition: 01 DISCHARGE HOME Condition: Stable Joe Murphy Apr 18, 2017 16:14
[2017-04-18] MEDS ORDERED: CIPR-9 PO (16:23)
[2017-04-18] MEDS ORDERED: FLUT1SPR5 EACH NARE (16:23)
== END 2017-04-18 18:12 | disposition home or self-care (01) ==
LOC: NEPD 15:31
DX: J01.40 Acute pansinusitis, unspecified (principal); F17.200 Nicotine dependence, unspecified, uncomplicated
CPT/HCPCS: 99284